=== PATIENT | male | born 1970 | race Caucasian/White ===

== ENCOUNTER 2017-05-18 13:10 | Emergency (ER) | payer MEDICAID, OTHER ==
[~2017-05-18] VITALS: Ht 182.9 cm; Wt 86.2 kg
[~2017-05-18 13:10] MED LIST: HYDR15SO4 PO
[2017-05-18 13:19] VITALS: BP 121/73
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
[2017-05-18] MEDS ORDERED: METHOCARBAMOL 500 MG TABLET PO STA (15:12)
[2017-05-18] MEDS ORDERED: traMADol 50 MG TABLET PO ONE (15:15)
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
[2017-05-18] MEDS ORDERED: METH-37 PO (16:09)
[2017-05-18] MEDS ORDERED: TRAM-48 PO (16:09)
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
== END 2017-05-18 16:13 | disposition home or self-care (01) ==
LOC: ER 13:10
DX: S13.4XXA Sprain of ligaments of cervical spine, initial encounter (principal); M47.9 Spondylosis, unspecified; M25.511 Pain in right shoulder; V49.40XA Driver injured in collision with unspecified motor vehicles in traffic accident, initial encounter; Y93.I9 Activity, other involving external motion; Y92.410 Unspecified street and highway as the place of occurrence of the external cause; Y99.8 Other external cause status
CPT/HCPCS: 72040; 73030; 99284

== ENCOUNTER 2018-12-30 14:55 | Inpatient (IN) | payer OTHER ==
[~2018-12-30] VITALS: Ht 182.9 cm; Wt 88.5 kg
[2018-12-30 13:40] VITALS: BP 132/74
[~2018-12-30 14:55] MED LIST changes: -HYDR15SO4 PO; +HYDR15SO6 PO; +METH-37 PO; +TRAM-48 PO
[2018-12-30] MEDS ORDERED: NAPROXEN 500 MG TABLET PO STA (15:16)
[2018-12-30] MEDS ORDERED: HYDROcodone/APAP 5/325MG 1 TAB TABLET PO ONE (15:30)
[2018-12-30] MEDS ORDERED: CYCLOBENZAPRINE 10 MG TABLET. PO ONE (15:30)
--- NOTE | 2018-12-30 15:44 | PHYS DOC ---
Past Medical History Past Medical History: No Pertinent History, Arthritis Past Surgical History: Other Additional Past Surgical Histo: liver ulcers removed, brain ulcers removed, spleenectomy Alcohol Use: None Drug Use: None Adult General Chief Complaint Chief Complaint: LOWER EXT PAIN HPI HPI Patient is a 48 year old female who presents to the ED today complaining of a sharp and constant 10 out of 10 left lateral hip pain radiating to the left lower extremity that began early this morning at 2 AM when he fell on ice at the mother's house. Patient denies any loss of consciousness, states the pain is worse on weight-bearing and ambulation. Patient states he has not taken anything for his pain. Review of Systems Review of Systems Constitutional: Denies fever or chills [] GI: Denies abdominal pain, nausea, vomiting, bloody stools or diarrhea [] : Denies dysuria or hematuria [] Musculoskeletal: Reports left hip pain radiating to the left lower extremity Integument: Denies rash or skin lesions [] Neurologic: Denies headache, focal weakness or sensory changes [] All other systems were reviewed and found to be within normal limits, except as documented in this note. Current Medications Current Medications Current Medications Medications (Trade) Dose Ordered Sig/Hakeem Start Time Stop Time Status Last Admin Dose Admin Acetaminophen/ Hydrocodone Bitart (Lortab 5/325) 2 tab 1X ONCE 12/30/18 15:30 12/30/18 15:31 Cancel Cyclobenzaprine HCl (Flexeril) 10 mg 1X ONCE 12/30/18 15:30 12/30/18 15:31 Cancel Morphine Sulfate (Morphine Sulfate) 5 mg 1X ONCE 12/30/18 16:15 12/30/18 16:16 DC 12/30/18 16:13 5 MG Naproxen (Naprosyn) 500 mg 1X STAT 12/30/18 15:16 12/30/18 15:17 Cancel Allergies Allergies Allergies Coded Allergies Type Severity Reaction Last Updated Verified No Known Drug Allergies 04/02/16 No Physical Exam Physical Exam Constitutional: Well developed, well nourished, no acute distress, non-toxic appearance. [] Abdomen: Bowel sounds normal, soft, no tenderness, no masses, no pulsatile masses. [] Skin: Warm, dry, no erythema, no rash. [] Back: No tenderness, no CVA tenderness. [] Extremities: Bilateral lower extremities with no obvious deformity. Tenderness on palpation of the left lateral proximal hip. Patient refused range of motion due to pain. +2 bilateral pedal pulses. Patient unable to bear weight to the left lower extremity. Neurologic: Alert and oriented X 3, normal motor function, normal sensory function, no focal deficits noted. [] Psychologic: Using foul language initially. Current Patient Data Vital Signs Vital Signs Date Time Temp Pulse Resp B/P (MAP) Pulse Ox O2 Delivery O2 Flow Rate FiO2 12/30/18 16:13 16 98 Room Air 12/30/18 15:00 98.1 97 119/61 (80) 98.1 Lab Values Laboratory Tests Test 12/30/18 16:00 White Blood Count 11.8 x10^3/uL (4.0-11.0) H Red Blood Count 5.43 x10^6/uL (4.30-5.70) Hemoglobin 14.8 g/dL (13.0-17.5) Hematocrit 45.4 % (39.0-53.0) Mean Corpuscular Volume 84 fL (79-100) Mean Corpuscular Hemoglobin 27 pg (25-35) Mean Corpuscular Hemoglobin Concent 33 g/dL (31-37) Red Cell Distribution Width 15.3 % (11.5-14.5) H Platelet Count 297 x10^3/uL (140-400) Neutrophils (%) (Auto) 64 % (31-73) Lymphocytes (%) (Auto) 20 % (24-48) L Monocytes (%) (Auto) 14 % (0-9) H Eosinophils (%) (Auto) 2 % (0-3) Basophils (%) (Auto) 1 % (0-3) Neutrophils # (Auto) 7.5 x10^3uL (1.8-7.7) Lymphocytes # (Auto) 2.4 x10^3/uL (1.0-4.8) Monocytes # (Auto) 1.6 x10^3/uL (0.0-1.1) H Eosinophils # (Auto) 0.2 x10^3/uL (0.0-0.7) Basophils # (Auto) 0.1 x10^3/uL (0.0-0.2) Prothrombin Time 13.8 SEC (11.7-14.0) Prothrombin Time INR 1.1 (0.8-1.1) PTT 29 SEC (24-38) Sodium Level 142 mmol/L (136-145) Potassium Level 3.9 mmol/L (3.5-5.1) Chloride Level 106 mmol/L (98-107) Carbon Dioxide Level 27 mmol/L (21-32) Anion Gap 9 (6-14) Blood Urea Nitrogen 13 mg/dL (8-26) Creatinine 1.0 mg/dL (0.7-1.3) Estimated GFR (Cockcroft-Gault) 80.4 Glucose Level 90 mg/dL (70-99) Calcium Level 8.7 mg/dL (8.5-10.1) Ethyl Alcohol Level < 10 mg/dL (0-10) Laboratory Tests 12/30/18 16:00 Laboratory Tests 12/30/18 16:00 EKG EKG [] Radiology/Procedures Radiology/Procedures []PROCEDURE: LUMBAR SPINE 2-3V EXAM: Lumbar spine, 3 views; left hip and pelvis, 3 views. HISTORY: Pain. Fall. COMPARISON: None. FINDINGS: Lumbar spine: Frontal, lateral and coned sacral views of the lumbar spine are obtained. There is minimal grade 1 anterolisthesis of L5 on S1. There is mild degenerative endplate remodeling predominantly at L4-L5. There is facet arthropathy at the mid lower lumbar levels. There is no fracture. Pelvis and left hip: A frontal view the pelvis and 2 views left hip are obtained. There is a mildly displaced left femoral neck fracture. IMPRESSION: 1. Nondisplaced left femoral neck fracture. 2. Mild multilevel degenerative change involving the lumbar spine. Electronically signed by: Aida Olivares MD (12/30/2018 3:55 PM) [place] [id number] DICTATED and SIGNED BY: AIDA OLIVARES MD DATE: 12/30/18 1558 Course & Med Decision Making Course & Med Decision Making Pertinent Labs and Imaging studies reviewed. (See chart for details) This is a 48-year-old male patient presenting to the ED today with left lateral hip pain radiating to the left lower extremity that began at 2 AM when he fell on ice. Left hip x-rays including pelvis-Nondisplaced left femoral neck fracture. 1630-spoke with Dr. Flores who will take patient to surgery today. Patient will stay NPO 1633-spoke with Dr. Aranda who accepted patient for admission. 1634 Dr. Flores in the Ed with patient. Barbra Disclaimer Dragon Disclaimer This electronic medical record was generated, in whole or in part, using a voice recognition dictation system. Departure Departure Impression: Primary Impression: Fall from standing Additional Impression: Fracture of femoral neck, left Disposition: 09 ADMITTED INPATIENT Condition: STABLE Referrals: NO PCP (PCP) Problem Qualifiers Primary Impression: Fall from standing Encounter type: initial encounter Qualified Codes: W19.XXXA - Unspecified fall, initial encounter Additional Impression: Fracture of femoral neck, left Encounter type: initial encounter Fracture type: closed Qualified Codes: S72.002A - Fracture of unspecified part of neck of left femur, initial encounter for closed fracture SAHARA HERMAN APRN Dec 30, 2018 15:44
--- NOTE | 2018-12-30 15:58 | RAD ---
EXAM: Lumbar spine, 3 views; left hip and pelvis, 3 views. HISTORY: Pain. Fall. COMPARISON: None. FINDINGS: Lumbar spine: Frontal, lateral and coned sacral views of the lumbar spine are obtained. There is minimal grade 1 anterolisthesis of L5 on S1. There is mild degenerative endplate remodeling predominantly at L4-L5. There is facet arthropathy at the mid lower lumbar levels. There is no fracture. Pelvis and left hip: A frontal view the pelvis and 2 views left hip are obtained. There is a mildly displaced left femoral neck fracture. IMPRESSION: 1. Nondisplaced left femoral neck fracture. 2. Mild multilevel degenerative change involving the lumbar spine. Electronically signed by: Aida Nguyen MD (12/30/2018 3:55 PM) [place] [id number]
[2018-12-30 16:14] LABS: BASO # 0.1 x10^3/uL (0.0-0.2); BASO % 1 % (0-3); EOS # 0.2 x10^3/uL (0.0-0.7); EOS % 2 % (0-3); HEMATOCRIT 45.4 % (39.0-53.0); HEMOGLOBIN 14.8 g/dL (13.0-17.5); LYMPH # 2.4 x10^3/uL (1.0-4.8); LYMPH % 20 % (24-48); MEAN CORPUSCULAR HEMOGLOBIN 27 pg (25-35); MEAN CORPUSCULAR HGB CONC 33 g/dL (31-37); MEAN CORPUSCULAR VOLUME 84 fL (79-100); MONO # 1.6 x10^3/uL (0.0-1.1); MONO % 14 % (0-9); NEUT # 7.5 x10^3uL (1.8-7.7); NEUT % 64 % (31-73); PLATELET COUNT 297 x10^3/uL (140-400); RED BLOOD COUNT 5.43 x10^6/uL (4.30-5.70); RED CELL DISTRIBUTION WIDTH 15.3 % (11.5-14.5); WHITE BLOOD COUNT 11.8 x10^3/uL (4.0-11.0)
[2018-12-30] MEDS ORDERED: MORPHINE SULFATE 10 MG/ML VIAL. IV ONE (16:15)
[2018-12-30 16:26] LABS: CALCIUM 8.7 mg/dL (8.5-10.1); GFR 80.4; POTASSIUM 3.9 mmol/L (3.5-5.1)
[2018-12-30 16:28] LABS: PROTHROMBIN TIME PATIENT 13.8 SEC (11.7-14.0)
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
[2018-12-30] MEDS ORDERED: HYDROmorphone 2 MG/ML VIAL IV PRN ×2 (17:30→19:45)
[2018-12-30 18:55] LABS: BILIRUBIN,URINE NEGATIVE (NEG); CLARITY,URINE CLEAR; COLOR,URINE YELLOW; NITRITE,URINE NEGATIVE (NEG); PROTEIN,URINE NEGATIVE (NEG-TRACE); UROBILINOGEN,URINE 0.2 mg/dL (0.2 mg/dL)
--- NOTE | 2018-12-30 18:55 | NUR ---
Received report from Nicholas RAMIREZ for patient. Patient arrived to unit at 1855 just after shift change via gurney. Patient complains of left hip pain and rates it a 8 out of 10. Patient talkative and pleasant. 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 During admission patient admitted to recreational drug use. Patient orientated to the unit and his room. His bed was placed in the lowest position and locked while also placing his call light within reach. Will continue to monitior patient. Current plan is for his surgical procedure to take place this evening.
[2018-12-30 19:01] LABS: BARBITURATES NEG (NEG); BENZODIAZEPINES NEG (NEG); CANNABINOIDS NEG (NEG); COCAINE NEG (NEG); METHADONE NEG (NEG); OPIATES POS (NEG); PHENCYCLIDINE NEG (NEG)
[2018-12-30 19:03] LABS: AMPHETAMINE/METHAMPHETAMINE POS (NEG)
[2018-12-30 19:14] LABS: HYALINE CASTS, URINE MANY /HPF
[2018-12-30 19:15] LABS: BACTERIA,URINE 0 /HPF (0-FEW); RBC,URINE OCC /HPF (0-2)
[2018-12-30] MEDS ORDERED: IV RINGERS,LACTATED 1000ML 1,000 ML IV SCH (19:41)
[2018-12-30] MEDS ORDERED: PROCHLORPERAZINE 10 MG/2 ML VIAL. IV PRN (19:45)
[2018-12-30] MEDS ORDERED: ONDANSETRON PF 4 MG/2 ML VIAL. IV PRN ×2 (19:45→22:30)
[2018-12-30] MEDS ORDERED: LIDOCAINE 1% PF 2 ML VIAL. ID PRN (19:45)
[2018-12-30] MEDS ORDERED: fentaNYL PF VIAL 100 MCG/2 ML VIAL IV PRN ×3 (19:45→22:30)
[2018-12-30] MEDS ORDERED: PROPOFOL 20 ML IV ONE (19:49)
[2018-12-30] MEDS ORDERED: ONDANSETRON PF 4 MG/2 ML VIAL. ONE (19:49)
[2018-12-30] MEDS ORDERED: LIDOCAINE 2% PF 5 ML VIAL. ONE (19:49)
[2018-12-30] MEDS ORDERED: DEXAMETHASONE SOD PHOS 20 MG/5 ML VIAL. ONE (19:49)
[2018-12-30] MEDS ORDERED: fentaNYL PF VIAL 100 MCG/2 ML VIAL ONE (19:50)
[2018-12-30] MEDS ORDERED: MIDAZOLAM HCL/PF 2 MG/2 ML VIAL. ONE (19:50)
[2018-12-30] MEDS ORDERED: MORPHINE SULFATE 4 MG/ML VIAL. IV PRN ×3 (20:00→22:30)
--- NOTE | 2018-12-30 20:25 | NUR ---
Patient is off unit for surgical procedure. Patient transferred to PACU via bed by this RN and Bernice RN from the PACU. No complications during transfer.
[2018-12-30] MEDS ORDERED: SEVOFLURANE 31 TO 60 MINUTES. IH ONE (22:08)
--- NOTE | 2018-12-30 22:28 | PDOC4 ---
Operative Note Operative Note Date of surgery: 12/30/2018 Preoperative diagnosis: Impacted left femoral neck fracture Postoperative diagnosis: Same Operative procedure: Closed reduction percutaneous screw placement 3 left femoral neck fracture her graft surgeon: Sandra Anesthesia: Gen. Estimated blood loss: 50 mL Complications: None Operative indications: Please see my emergency Department consultation note as of today for detail operative indications Operative text: Patient was identified procedure verified patient placed in the supine position on the [place] fracture table after adequate amounts of general anesthesia were administered. Left lower extremity was placed in traction all other bony prominences were well-padded and the right leg was placed in the right leg schwarz adequate reduction was verified under fluoroscopic guidance and the left hip was prepped and draped in standard sterile fashion. After timeout was performed patient procedure identified and verified and incision was made localized over the lateral aspect of the femur and a total of 3 guidewires were placed parallel in the femoral neck and placed in excellent position for good bite in the femoral head. The near cortex was drilled and [place] 8.0 cannulated titanium screws size 100, 100, and 95 mm in length were placed and achieved excellent reduction 8 minutes and bite. Placement was checked under multiple fluoroscopic guidance to ensure excellent placement of the femoral head and no penetration. Guidewires removed thorough irrigation carried out normal saline solution fascia was closed with #1 Vicryl suture subcutaneous closure with buried Vicryl suture skin closure with xenia sterile dressings were applied patient was returned to recovery room in stable condition having tolerated procedure well KEELEY ROWLEY MD Dec 30, 2018 22:28
[2018-12-30] MEDS ORDERED: oxyCODONE IR 5 MG TABLET PO PRN (22:30)
[2018-12-30] MEDS ORDERED: POLYETHYLENE GLYCOL 3350 17 GM PACKET. PO PRN (22:30)
[2018-12-30] MEDS ORDERED: DEXTROSE 50% 25 GM / 50ML DISP.SYRIN. IV PRN (22:30)
[2018-12-30] MEDS ORDERED: HYDROcodone/APAP 7.5/325MG 1 TAB TABLET PO PRN (22:30)
--- NOTE | 2018-12-30 23:35 | NUR ---
Patient arrived back to unit via bed at 2335, after receiving report from Bernice RAMIREZ in the PACU. Patient reorientated to room, bed placed in lowest position and locked, and call light within reach. Patient currently rates pain at a 3 out of 10. Will continue to monitor the patient.
[2018-12-30] MEDS: HYDROcodone/APAP 7.5/325MG 1 TAB TABLET PO PRN (23:44)
[2018-12-30 23:45] VITALS: BP 132/74
[2018-12-31] VITALS (9 sets, daily range): BP systolic 101–127; BP diastolic 56–78
[2018-12-31 04:25] LABS: BASO % 0 % (0-3); EOS % 0 % (0-3); HEMATOCRIT 46.7 % (39.0-53.0); HEMOGLOBIN 15.1 g/dL (13.0-17.5); LYMPH # 0.8 x10^3/uL (1.0-4.8); LYMPH % 6 % (24-48); MEAN CORPUSCULAR HEMOGLOBIN 27 pg (25-35); MEAN CORPUSCULAR HGB CONC 32 g/dL (31-37); MEAN CORPUSCULAR VOLUME 84 fL (79-100); MONO # 0.2 x10^3/uL (0.0-1.1); MONO % 2 % (0-9); NEUT # 11.7 x10^3uL (1.8-7.7); NEUT % 92 % (31-73); PLATELET COUNT 303 x10^3/uL (140-400); RED BLOOD COUNT 5.57 x10^6/uL (4.30-5.70); RED CELL DISTRIBUTION WIDTH 15.4 % (11.5-14.5); WHITE BLOOD COUNT 12.8 x10^3/uL (4.0-11.0)
[2018-12-31 05:35] LABS: CALCIUM 8.6 mg/dL (8.5-10.1); CREATININE 1.1 mg/dL (0.7-1.3); GFR 72.1; POTASSIUM 4.4 mmol/L (3.5-5.1)
[2018-12-31] MEDS ORDERED: MAGNESIUM HYDROXIDE 2,400 MG/30 ML ORAL.SUSP. PO PRN (06:00)
[2018-12-31 07:35] LABS: % BANDS 2 % (0-9); % LYMPHS 5 % (24-48); % MONOS 1 % (0-10); % SEGS 92 % (35-66); PLT ESTIMATE ADEQUATE (ADEQUATE)
[2018-12-31] MEDS: ASPIRIN 325 MG TABLET PO SCH (08:26)
[2018-12-31] MEDS: SENNOSIDES/DOCUSATE 8.6/50MG TABLET. PO SCH (08:26)
[2018-12-31] MEDS: HYDROcodone/APAP 7.5/325MG 1 TAB TABLET PO PRN ×4 (08:27→20:35)
--- NOTE | 2018-12-31 10:39 | PDOC ---
PROGRESS NOTES Chief Complaint Chief Complaint 1. Nondisplaced left femoral neck fracture. OR 12/30/18 2. HX REMOTE CLOSED HEAD INJURY WITH cognitive decline 3. tobacco abuse 4. Hx osteoporosis 5. HIgh Likelihood vitamin D deficiency History of Present Illness History of Present Illness Postop day #1 Very talkative but rather pleasant VS in chart looks good He looks okay Has not amblated yet post op PLAN: Add PTOT Check vitamin D levels Pain control Regular diet Will need dexa scan care of PCP yearly No home meds to reconcile Vitals Vitals Vital Signs Date Time Temp Pulse Resp B/P (MAP) Pulse Ox O2 Delivery O2 Flow Rate FiO2 12/31/18 08:27 90 Room Air 12/31/18 07:00 97.8 84 18 116/71 (86) 97.8 12/31/18 00:44 10.0 Physical Exam General: Alert, Oriented X3, Cooperative, mild distress Abdomen: Normal bowel sounds, Soft Extremities: No clubbing, No cyanosis, No edema, Normal pulses Labs LABS Laboratory Tests Test 12/30/18 16:00 12/30/18 17:56 12/31/18 03:30 White Blood Count 11.8 x10^3/uL (4.0-11.0) 12.8 x10^3/uL (4.0-11.0) Red Blood Count 5.43 x10^6/uL (4.30-5.70) 5.57 x10^6/uL (4.30-5.70) Hemoglobin 14.8 g/dL (13.0-17.5) 15.1 g/dL (13.0-17.5) Hematocrit 45.4 % (39.0-53.0) 46.7 % (39.0-53.0) Mean Corpuscular Volume 84 fL (79-100) 84 fL (79-100) Mean Corpuscular Hemoglobin 27 pg (25-35) 27 pg (25-35) Mean Corpuscular Hemoglobin Concent 33 g/dL (31-37) 32 g/dL (31-37) Red Cell Distribution Width 15.3 % (11.5-14.5) 15.4 % (11.5-14.5) Platelet Count 297 x10^3/uL (140-400) 303 x10^3/uL (140-400) Neutrophils (%) (Auto) 64 % (31-73) 92 % (31-73) Lymphocytes (%) (Auto) 20 % (24-48) 6 % (24-48) Monocytes (%) (Auto) 14 % (0-9) 2 % (0-9) Eosinophils (%) (Auto) 2 % (0-3) 0 % (0-3) Basophils (%) (Auto) 1 % (0-3) 0 % (0-3) Neutrophils # (Auto) 7.5 x10^3uL (1.8-7.7) 11.7 x10^3uL (1.8-7.7) Lymphocytes # (Auto) 2.4 x10^3/uL (1.0-4.8) 0.8 x10^3/uL (1.0-4.8) Monocytes # (Auto) 1.6 x10^3/uL (0.0-1.1) 0.2 x10^3/uL (0.0-1.1) Eosinophils # (Auto) 0.2 x10^3/uL (0.0-0.7) 0.0 x10^3/uL (0.0-0.7) Basophils # (Auto) 0.1 x10^3/uL (0.0-0.2) 0.0 x10^3/uL (0.0-0.2) Prothrombin Time 13.8 SEC (11.7-14.0) Prothromb Time International Ratio 1.1 (0.8-1.1) Activated Partial Thromboplast Time 29 SEC (24-38) Sodium Level 142 mmol/L (136-145) 140 mmol/L (136-145) Potassium Level 3.9 mmol/L (3.5-5.1) 4.4 mmol/L (3.5-5.1) Chloride Level 106 mmol/L (98-107) 104 mmol/L (98-107) Carbon Dioxide Level 27 mmol/L (21-32) 27 mmol/L (21-32) Anion Gap 9 (6-14) 9 (6-14) Blood Urea Nitrogen 13 mg/dL (8-26) 12 mg/dL (8-26) Creatinine 1.0 mg/dL (0.7-1.3) 1.1 mg/dL (0.7-1.3) Estimated GFR (Cockcroft-Gault) 80.4 72.1 Glucose Level 90 mg/dL (70-99) 160 mg/dL (70-99) Calcium Level 8.7 mg/dL (8.5-10.1) 8.6 mg/dL (8.5-10.1) Ethyl Alcohol Level < 10 mg/dL (0-10) Urine Collection Type Unknown Urine Color Yellow Urine Clarity Clear Urine pH 6.0 Urine Specific Erin 1.020 Urine Protein Negative mg/dL (NEG-TRACE) Urine Glucose (UA) Negative mg/dL (NEG) Urine Ketones (Stick) 15 mg/dL (NEG) Urine Blood Negative (NEG) Urine Nitrite Negative (NEG) Urine Bilirubin Negative (NEG) Urine Urobilinogen Dipstick 0.2 mg/dL (0.2 mg/dL) Urine Leukocyte Esterase Negative (NEG) Urine RBC Occ /HPF (0-2) Urine WBC 1-4 /HPF (0-4) Urine Bacteria 0 /HPF (0-FEW) Urine Hyaline Casts Many /HPF Urine Mucus Mod /LPF Urine Opiates Screen Pos (NEG) Urine Methadone Screen Neg (NEG) Urine Barbiturates Neg (NEG) Urine Phencyclidine Screen Neg (NEG) Urine Amphetamine/Methamphetamine Pos (NEG) Urine Benzodiazepines Screen Neg (NEG) Urine Cocaine Screen Neg (NEG) Urine Cannabinoids Screen Neg (NEG) Urine Ethyl Alcohol Neg (NEG) Segmented Neutrophils % 92 % (35-66) Band Neutrophils % 2 % (0-9) Lymphocytes % 5 % (24-48) Monocytes % 1 % (0-10) Platelet Estimate Adequate (ADEQUATE) 25-Hydroxy Vitamin D Total 18.2 ng/mL (30-100) Assessment and Plan Assessmemt and Plan Problems Medical Problems: (1) Fall from standing Status: Acute (2) Fracture of femoral neck, left Status: Acute Comment Review of Relevant I have reviewed the following items dillan (where applicable) has been applied. Labs Laboratory Tests Test 12/30/18 16:00 12/30/18 17:56 12/31/18 03:30 White Blood Count 11.8 x10^3/uL (4.0-11.0) 12.8 x10^3/uL (4.0-11.0) Red Blood Count 5.43 x10^6/uL (4.30-5.70) 5.57 x10^6/uL (4.30-5.70) Hemoglobin 14.8 g/dL (13.0-17.5) 15.1 g/dL (13.0-17.5) Hematocrit 45.4 % (39.0-53.0) 46.7 % (39.0-53.0) Mean Corpuscular Volume 84 fL (79-100) 84 fL (79-100) Mean Corpuscular Hemoglobin 27 pg (25-35) 27 pg (25-35) Mean Corpuscular Hemoglobin Concent 33 g/dL (31-37) 32 g/dL (31-37) Red Cell Distribution Width 15.3 % (11.5-14.5) 15.4 % (11.5-14.5) Platelet Count 297 x10^3/uL (140-400) 303 x10^3/uL (140-400) Neutrophils (%) (Auto) 64 % (31-73) 92 % (31-73) Lymphocytes (%) (Auto) 20 % (24-48) 6 % (24-48) Monocytes (%) (Auto) 14 % (0-9) 2 % (0-9) Eosinophils (%) (Auto) 2 % (0-3) 0 % (0-3) Basophils (%) (Auto) 1 % (0-3) 0 % (0-3) Neutrophils # (Auto) 7.5 x10^3uL (1.8-7.7) 11.7 x10^3uL (1.8-7.7) Lymphocytes # (Auto) 2.4 x10^3/uL (1.0-4.8) 0.8 x10^3/uL (1.0-4.8) Monocytes # (Auto) 1.6 x10^3/uL (0.0-1.1) 0.2 x10^3/uL (0.0-1.1) Eosinophils # (Auto) 0.2 x10^3/uL (0.0-0.7) 0.0 x10^3/uL (0.0-0.7) Basophils # (Auto) 0.1 x10^3/uL (0.0-0.2) 0.0 x10^3/uL (0.0-0.2) Prothrombin Time 13.8 SEC (11.7-14.0) Prothromb Time International Ratio 1.1 (0.8-1.1) Activated Partial Thromboplast Time 29 SEC (24-38) Sodium Level 142 mmol/L (136-145) 140 mmol/L (136-145) Potassium Level 3.9 mmol/L (3.5-5.1) 4.4 mmol/L (3.5-5.1) Chloride Level 106 mmol/L (98-107) 104 mmol/L (98-107) Carbon Dioxide Level 27 mmol/L (21-32) 27 mmol/L (21-32) Anion Gap 9 (6-14) 9 (6-14) Blood Urea Nitrogen 13 mg/dL (8-26) 12 mg/dL (8-26) Creatinine 1.0 mg/dL (0.7-1.3) 1.1 mg/dL (0.7-1.3) Estimated GFR (Cockcroft-Gault) 80.4 72.1 Glucose Level 90 mg/dL (70-99) 160 mg/dL (70-99) Calcium Level 8.7 mg/dL (8.5-10.1) 8.6 mg/dL (8.5-10.1) Ethyl Alcohol Level < 10 mg/dL (0-10) Urine Collection Type Unknown Urine Color Yellow Urine Clarity Clear Urine pH 6.0 Urine Specific Erin 1.020 Urine Protein Negative mg/dL (NEG-TRACE) Urine Glucose (UA) Negative mg/dL (NEG) Urine Ketones (Stick) 15 mg/dL (NEG) Urine Blood Negative (NEG) Urine Nitrite Negative (NEG) Urine Bilirubin Negative (NEG) Urine Urobilinogen Dipstick 0.2 mg/dL (0.2 mg/dL) Urine Leukocyte Esterase Negative (NEG) Urine RBC Occ /HPF (0-2) Urine WBC 1-4 /HPF (0-4) Urine Bacteria 0 /HPF (0-FEW) Urine Hyaline Casts Many /HPF Urine Mucus Mod /LPF Urine Opiates Screen Pos (NEG) Urine Methadone Screen Neg (NEG) Urine Barbiturates Neg (NEG) Urine Phencyclidine Screen Neg (NEG) Urine Amphetamine/Methamphetamine Pos (NEG) Urine Benzodiazepines Screen Neg (NEG) Urine Cocaine Screen Neg (NEG) Urine Cannabinoids Screen Neg (NEG) Urine Ethyl Alcohol Neg (NEG) Segmented Neutrophils % 92 % (35-66) Band Neutrophils % 2 % (0-9) Lymphocytes % 5 % (24-48) Monocytes % 1 % (0-10) Platelet Estimate Adequate (ADEQUATE) 25-Hydroxy Vitamin D Total 18.2 ng/mL (30-100) Laboratory Tests Test 12/30/18 16:00 12/30/18 17:56 12/31/18 03:30 White Blood Count 11.8 x10^3/uL (4.0-11.0) 12.8 x10^3/uL (4.0-11.0) Red Blood Count 5.43 x10^6/uL (4.30-5.70) 5.57 x10^6/uL (4.30-5.70) Hemoglobin 14.8 g/dL (13.0-17.5) 15.1 g/dL (13.0-17.5) Hematocrit 45.4 % (39.0-53.0) 46.7 % (39.0-53.0) Mean Corpuscular Volume 84 fL (79-100) 84 fL (79-100) Mean Corpuscular Hemoglobin 27 pg (25-35) 27 pg (25-35) Mean Corpuscular Hemoglobin Concent 33 g/dL (31-37) 32 g/dL (31-37) Red Cell Distribution Width 15.3 % (11.5-14.5) 15.4 % (11.5-14.5) Platelet Count 297 x10^3/uL (140-400) 303 x10^3/uL (140-400) Neutrophils (%) (Auto) 64 % (31-73) 92 % (31-73) Lymphocytes (%) (Auto) 20 % (24-48) 6 % (24-48) Monocytes (%) (Auto) 14 % (0-9) 2 % (0-9) Eosinophils (%) (Auto) 2 % (0-3) 0 % (0-3) Basophils (%) (Auto) 1 % (0-3) 0 % (0-3) Neutrophils # (Auto) 7.5 x10^3uL (1.8-7.7) 11.7 x10^3uL (1.8-7.7) Lymphocytes # (Auto) 2.4 x10^3/uL (1.0-4.8) 0.8 x10^3/uL (1.0-4.8) Monocytes # (Auto) 1.6 x10^3/uL (0.0-1.1) 0.2 x10^3/uL (0.0-1.1) Eosinophils # (Auto) 0.2 x10^3/uL (0.0-0.7) 0.0 x10^3/uL (0.0-0.7) Basophils # (Auto) 0.1 x10^3/uL (0.0-0.2) 0.0 x10^3/uL (0.0-0.2) Prothrombin Time 13.8 SEC (11.7-14.0) Prothromb Time International Ratio 1.1 (0.8-1.1) Activated Partial Thromboplast Time 29 SEC (24-38) Sodium Level 142 mmol/L (136-145) 140 mmol/L (136-145) Potassium Level 3.9 mmol/L (3.5-5.1) 4.4 mmol/L (3.5-5.1) Chloride Level 106 mmol/L (98-107) 104 mmol/L (98-107) Carbon Dioxide Level 27 mmol/L (21-32) 27 mmol/L (21-32) Anion Gap 9 (6-14) 9 (6-14) Blood Urea Nitrogen 13 mg/dL (8-26) 12 mg/dL (8-26) Creatinine 1.0 mg/dL (0.7-1.3) 1.1 mg/dL (0.7-1.3) Estimated GFR (Cockcroft-Gault) 80.4 72.1 Glucose Level 90 mg/dL (70-99) 160 mg/dL (70-99) Calcium Level 8.7 mg/dL (8.5-10.1) 8.6 mg/dL (8.5-10.1) Ethyl Alcohol Level < 10 mg/dL (0-10) Urine Collection Type Unknown Urine Color Yellow Urine Clarity Clear Urine pH 6.0 Urine Specific Erin 1.020 Urine Protein Negative mg/dL (NEG-TRACE) Urine Glucose (UA) Negative mg/dL (NEG) Urine Ketones (Stick) 15 mg/dL (NEG) Urine Blood Negative (NEG) Urine Nitrite Negative (NEG) Urine Bilirubin Negative (NEG) Urine Urobilinogen Dipstick 0.2 mg/dL (0.2 mg/dL) Urine Leukocyte Esterase Negative (NEG) Urine RBC Occ /HPF (0-2) Urine WBC 1-4 /HPF (0-4) Urine Bacteria 0 /HPF (0-FEW) Urine Hyaline Casts Many /HPF Urine Mucus Mod /LPF Urine Opiates Screen Pos (NEG) Urine Methadone Screen Neg (NEG) Urine Barbiturates Neg (NEG) Urine Phencyclidine Screen Neg (NEG) Urine Amphetamine/Methamphetamine Pos (NEG) Urine Benzodiazepines Screen Neg (NEG) Urine Cocaine Screen Neg (NEG) Urine Cannabinoids Screen Neg (NEG) Urine Ethyl Alcohol Neg (NEG) Segmented Neutrophils % 92 % (35-66) Band Neutrophils % 2 % (0-9) Lymphocytes % 5 % (24-48) Monocytes % 1 % (0-10) Platelet Estimate Adequate (ADEQUATE) 25-Hydroxy Vitamin D Total 18.2 ng/mL (30-100) Medications Current Medications Acetaminophen/ Hydrocodone Bitart (Lortab 5/325) 2 tab 1X ONCE PO ; Start 12/30 at 15:30; Stop 12/30/18 at 15:31; Status Cancel Naproxen (Naprosyn) 500 mg 1X STAT PO ; Start 12/30/18 at 15:16; Stop 12/30/18 at 15:17; Status Cancel Cyclobenzaprine HCl (Flexeril) 10 mg 1X ONCE PO ; Start 12/30/18 at 15:30; Stop 12/30/18 at 15:31; Status Cancel Morphine Sulfate (Morphine Sulfate) 5 mg 1X ONCE IV Last administered on at 16:13; Start 12/30/18 at 16:15; Stop 12/30/18 at 16:16; Status DC Hydromorphone HCl (Dilaudid) 1 mg PRN Q4HRS PRN IV MODERATE PAIN Last administered on 12/30/18at 18:04; Start 12/30/18 at 17:30 Ondansetron HCl (Zofran) 4 mg PRN Q6HRS PRN IV NAUSEA/VOMITING; Start 12/30/18 at 19:45; Stop 12/30/18 at 22:36; Status DC Fentanyl Citrate (Fentanyl 2ml Vial) 25 mcg PRN Q5MIN PRN IV MILD PAIN; Start 12/30/18 at 19:45; Stop 12/31/18 at 19:44 Fentanyl Citrate (Fentanyl 2ml Vial) 50 mcg PRN Q5MIN PRN IV MODERATE TO SEVERE PAIN; Start 12/30/18 at 19:45; Stop 12/31/18 at 19:44 Morphine Sulfate (Morphine Sulfate) 1 mg PRN Q10MIN PRN IV PAIN; Start at 20:00 Ringer's Solution 1,000 ml @ 30 mls/hr Q24H IV Last administered on 12/30/18at 21:02; Start 12/30/18 at 19:41; Stop 12/31/18 at 07:40; Status DC Lidocaine HCl (Xylocaine-Mpf 1% 2ml Vial) 2 ml PRN 1X PRN ID PRIOR TO IV START ; Start 12/30/18 at 19:45; Stop 12/31/18 at 19:44 Hydromorphone HCl (Dilaudid) 0.5 mg PRN Q10MIN PRN IV SEV PAIN, Second choice; Start 12/30/18 at 19:45; Stop 12/31/18 at 19:44 Prochlorperazine Edisylate (Compazine) 5 mg PACU PRN PRN IV NAUSEA, MRX1; Start 12/30/18 at 19:45; Stop 12/31/18 at 19:44 Propofol 20 ml @ As Directed STK-MED ONCE IV ; Start 12/30/18 at 19:49; Stop at 19:50; Status DC Dexamethasone Sodium Phosphate (Decadron) 20 mg STK-MED ONCE .ROUTE ; Start at 19:49; Stop 12/30/18 at 19:50; Status DC Lidocaine HCl (Lidocaine Pf 2% Vial) 5 ml STK-MED ONCE .ROUTE ; Start 12/30/18 at 19:49; Stop 12/30/18 at 19:50; Status DC Ondansetron HCl (Zofran) 4 mg STK-MED ONCE .ROUTE ; Start 12/30/18 at 19:49; Stop 12/30/18 at 19:50; Status DC Fentanyl Citrate (Fentanyl 2ml Vial) 100 mcg STK-MED ONCE .ROUTE ; Start at 19:50; Stop 12/30/18 at 19:51; Status DC Midazolam HCl (Versed) 2 mg STK-MED ONCE .ROUTE ; Start 12/30/18 at 19:50; Stop 12/30/18 at 19:51; Status DC Cefazolin Sodium 50 ml @ As Directed STK-MED ONCE IV ; Start 12/30/18 at 21:05; Stop 12/30/18 at 21:06; Status DC Sevoflurane (Ultane) 30 ml STK-MED ONCE IH ; Start 12/30/18 at 22:08; Stop 12/30 at 22:09; Status DC Oxycodone HCl (Roxicodone) 5 mg PRN Q3HRS PRN PO PAIN; Start 12/30/18 at 22:30 Morphine Sulfate (Morphine Sulfate) 2 mg PRN Q1HR PRN IV PAIN; Start 12/30/18 at 22:30 Fentanyl Citrate (Fentanyl 2ml Vial) 25 mcg PRN Q1HR PRN IV PAIN; Start at 22:30 Senna/Docusate Sodium (Senna Plus) 1 tab DAILY PO Last administered on at 08:26; Start 12/31/18 at 09:00 Polyethylene Glycol (miraLAX PACKET) 17 gm PRN DAILY PRN PO CONSTIPATION; Start 12/30/18 at 22:30 Ondansetron HCl (Zofran) 4 mg PRN Q4HRS PRN IV NAUSEA/VOMITING; Start 12/30/18 at 22:30 Aspirin (Evie Aspirin) 325 mg DAILYWBKFT PO Last administered on 12/31/18at 08: 26; Start 12/31/18 at 08:00 Magnesium Hydroxide (Milk Of Magnesia) 2,400 mg 1X PRN PRN PO CONSTIPATION; Start 12/31/18 at 06:00; Stop 01/01/19 at 05:59 Bisacodyl (Dulcolax Supp) 10 mg 1X PRN PRN MS CONSTIPATION; Start 12/31/18 at 16:00; Stop 01/01/19 at 15:59 Acetaminophen/ Hydrocodone Bitart (Lortab 7.5/325) 1 tab PRN Q4HRS PRN PO PAIN ; Start 12/30/18 at 22:30 Morphine Sulfate (Morphine Sulfate) 4 mg PRN Q2HR PRN IV PAIN; Start 12/30/18 at 22:30 Acetaminophen/ Hydrocodone Bitart (Lortab 7.5/325) 2 tab PRN Q4HRS PRN PO PAIN Last administered on 12/31/18at 08:27; Start 12/30/18 at 22:30 Dextrose (Dextrose 50%-Water Syringe) 12.5 gm PRN Q15MIN PRN IV SEE COMMENTS; Start 12/30/18 at 22:30 Cefazolin Sodium/ Dextrose 50 ml @ 100 mls/hr Q6H IV Last administered on 12/31at 05:41; Start 12/30/18 at 23:00; Stop 12/31/18 at 11:29 Cefazolin Sodium 50 ml @ 100 mls/hr 1X ONCE IV Last administered on at 21:14; Start 12/31/18 at 00:00; Stop 12/31/18 at 00:16; Status DC Active Scripts Active Ultram (Tramadol Hcl) 50 Mg Tablet 1 Tab PO Q6HRS Robaxin (Methocarbamol) 500 Mg Tablet 1 Tab PO TID Hydrocodone-Apap 7.5-325/15 Soln (Hydrocodone Bit/Acetaminophen) 15 Ml Solution 15 Ml PO PRN Q6HRS PRN Vitals/I & O Vital Sign - Last 24 Hours 12/30/18 12/30/18 12/30/18 12/30/18 13:40 15:00 16:00 16:13 Temp 98.1 98.1 98.1 98.1 Pulse 92 97 90 Resp 22 14 14 16 B/P (MAP) 132/74 (93) 119/61 (80) 125/66 (85) Pulse Ox 92 98 97 98 O2 Delivery Room Air Room Air Room Air Room Air 12/30/18 12/30/18 12/30/18 12/30/18 16:30 17:30 18:00 18:04 Pulse 98 94 92 Resp 16 16 16 B/P (MAP) 105/65 (78) 110/68 (82) 118/69 (85) Pulse Ox 98 94 97 96 O2 Delivery Room Air Room Air Room Air Room Air 12/30/18 12/30/18 12/30/1819 20:27 21:48 22:22 22:22 Temp 97.2 97.2 97.2 97.2 Pulse 92 58 Resp 20 16 B/P (MAP) 119/65 124/71 Pulse Ox 96 100 O2 Delivery Room Air Room Air Room Air Room Air O2 Flow Rate 10 10 12/30/18 12/30/18 12/30/18 12/30/18 22:37 22:52 23:07 23:24 Temp 97.2 97 97.2 97 97.2 97.0 97.2 97.0 Pulse 65 64 76 70 Resp 17 18 18 20 B/P (MAP) 119/72 120/69 115/64 118/62 Pulse Ox 100 100 95 94 O2 Delivery Room Air Simple Mask Room Air Room Air O2 Flow Rate 10 10 12/30/18 12/30/18 12/31/18 12/31/18 23:44 23:45 00:00 00:27 Temp 97.8 98.2 98.0 97.8 98.2 98.0 Pulse 92 97 99 Resp 22 20 20 B/P (MAP) 132/74 (93) 124/78 (93) 112/72 (85) Pulse Ox 94 92 92 92 O2 Delivery Room Air Room Air Room Air Room Air 12/31/18 12/31/18 12/31/18 12/31/18 00:44 01:00 02:00 07:00 Temp 98.0 98.3 97.8 98.0 98.3 97.8 Pulse 61 64 84 Resp 18 18 18 B/P (MAP) 109/67 (81) 101/64 (76) 116/71 (86) Pulse Ox 92 98 90 100 O2 Delivery Room Air Room Air Room Air Room Air O2 Flow Rate 10.0 12/31/18 08:27 Pulse Ox 90 O2 Delivery Room Air Intake and Output 12/30/18 12/30/18 12/31/18 15:00 23:00 07:00 Intake Total 1110 ml Output Total 50 ml Balance -50 ml 1110 ml DAYO NAVARRO MD Dec 31, 2018 10:39
--- NOTE | 2018-12-31 14:18 | NUR ---
SW following. Discussed with RN. Pt has history of drug use, PAT team consulted. PAT team met with pt and advised SW pt reports having a severe brain injury, is not interested in any rehab, but would like to follow up for mental health services. RAMILA provided pt with information for [facility]. Pt has his car here and can stay at his mother's home when discharged from the hospital. SW will continue to follow. RN notified.
[2018-12-31] MEDS ORDERED: CALCIUM CARBONATE 500 MG TAB.CHEW PO PRN (15:45)
[2018-12-31] MEDS ORDERED: BISACODYL 10 MG SUPP.RECT. PR PRN (16:00)
--- NOTE | 2018-12-31 16:03 | CONS ---
DATE OF CONSULTATION: 12/30/2018 REQUESTING CONSULTATION: Dr. Francisco Perez and Tarsha Clemons, nurse practitioner. REASON FOR CONSULTATION: Left hip fracture. HISTORY OF PRESENT ILLNESS: The patient is a 48-year-old male who fell this morning at 2 a.m. when he slipped on ice at his mother's house. He did not hit his head. No loss of consciousness. He had landed on his left hip and had, since that time, difficulty bearing weight and severe hip pain. On presentation to the Emergency Department, 08/13, better with pain medications and avoiding weightbearing in the interim. He has not taken any medicines for his pain. PAST MEDICAL HISTORY: Significant for rheumatoid arthritis and previous remote head injury. PAST SURGICAL HISTORY: Include a brain surgery associated with a head injury, a splenectomy, and he has also medical history of some ulcer surgery. MEDICATIONS: Denies any current medications. ALLERGIES: No known drug allergies. REVIEW OF SYSTEMS: Only for the hip pain. He denies any head injury, chest pain, shortness of breath, radiating pain, numbness, tingling in the extremities, focal weakness. No recent fever, chills or constitutional symptoms. FAMILY HISTORY: Noncontributory. SOCIAL HISTORY: Denies any smoking or alcohol use. 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 He is actually a less than 1 pack per day smoker. FAMILY HISTORY: Hypercholesterolemia and hypertension. PHYSICAL EXAMINATION: GENERAL: A pleasant, cooperative 48-year-old male, alert and oriented, no acute distress. HEENT: Atraumatic, normocephalic. EXTREMITIES: On examination of the upper extremities, he has full range of motion; normal stability, alignment of bilateral shoulders, elbows, wrists. On examination of lower extremities, the left hip is very tender on palpation or any type of motion, no deformity is present. Normal examination of the contralateral right hip, bilateral knees and ankles with intact motor function, distal pulses, sensation, reflexes and skin in both upper and lower extremities throughout. IMAGING: X-rays show a nondisplaced femoral neck fracture on the left side with some partial impaction. IMPRESSION: Left femoral neck fracture. TREATMENT PLAN: I went over with him the significance of the injury, the possibility of disruption of the blood supply due to the location in the femoral neck and the rationale for fixation to avoid any displacement. I told him that with ambulating, unfortunately the fracture could displace and disrupt the blood supply. Another alternative would be to significantly limit his weightbearing over the next several weeks or fixation of the fracture to allow him to weightbear. He prefers to undergo the surgical evaluation. We did cover the fact that it may not heal and there is a possibility of blood supply disruption regardless due to his injury, possibility of infection with surgery, medical or other anesthetic complications. All his questions were answered. He wishes to proceed with surgical evaluation and treatment, which will occur today as he is n.p.o. since breakfast. KEELEY ROWLEY MD DR: CATY/tabatha JOB#: [id number] / [id number]
[2019-01-01 03:00] VITALS: BP 108/62
[2019-01-01 04:31] LABS: BASO # 0.1 x10^3/uL (0.0-0.2); BASO % 1 % (0-3); EOS # 0.2 x10^3/uL (0.0-0.7); EOS % 1 % (0-3); HEMATOCRIT 43.7 % (39.0-53.0); HEMOGLOBIN 14.1 g/dL (13.0-17.5); LYMPH # 3.4 x10^3/uL (1.0-4.8); LYMPH % 21 % (24-48); MEAN CORPUSCULAR HEMOGLOBIN 27 pg (25-35); MEAN CORPUSCULAR HGB CONC 32 g/dL (31-37); MEAN CORPUSCULAR VOLUME 84 fL (79-100); MONO # 1.9 x10^3/uL (0.0-1.1); MONO % 12 % (0-9); NEUT # 10.7 x10^3uL (1.8-7.7); NEUT % 66 % (31-73); PLATELET COUNT 293 x10^3/uL (140-400); RED BLOOD COUNT 5.23 x10^6/uL (4.30-5.70); RED CELL DISTRIBUTION WIDTH 15.5 % (11.5-14.5); WHITE BLOOD COUNT 16.3 x10^3/uL (4.0-11.0)
[2019-01-01 05:14] LABS: CALCIUM 8.6 mg/dL (8.5-10.1); CREATININE 1.1 mg/dL (0.7-1.3); GFR 72.1; POTASSIUM 4.1 mmol/L (3.5-5.1)
[2019-01-01 06:55] VITALS: BP 113/75
[2019-01-01] MEDS ORDERED: ERGO500027 PO (08:45)
[2019-01-01] MEDS ORDERED: HYDR-2765 PO (08:45)
[2019-01-01] MEDS ORDERED: ASPI325T8 PO (08:45)
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
[2019-01-01] MEDS: ASPIRIN 325 MG TABLET PO SCH (08:52)
[2019-01-01] MEDS: SENNOSIDES/DOCUSATE 8.6/50MG TABLET. PO SCH (08:52)
[2019-01-01] MEDS: HYDROcodone/APAP 7.5/325MG 1 TAB TABLET PO PRN ×2 (08:53→14:48)
--- NOTE | 2019-01-01 09:16 | NUR ---
Pt is declining physical therapy outpatient and home health.
--- NOTE | 2019-01-01 09:17 | NUR ---
SW following. Discussed with RN. RN discussed with pt HH vs outpatient. Per RN, pt declined both home health and outpatient therapy, as he does not believe he needs this. Pt reported he is staying with his mother in an "old folks home". No SW needs at this time. RN anticipates DC today.
[2019-01-01] MEDS ORDERED: ERGOCALCIFEROL (VITAMIN D2) 50,000 UNIT CAPSULE. PO SCH (09:30)
[2019-01-01 10:29] VITALS: BP 118/69
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
--- NOTE | 2019-01-01 17:07 | NUR ---
Pt declined HH and outpt pt. Pt was given rx for pain, aspirin, vit. D. Pt is to f/u in two weeks with ortho. VSS. Dc packet given, no questions asked, and pt was escorted to main entrance by NA at 1405. Walker was also given to pt.
== END 2019-01-01 14:05 | disposition home or self-care (01) | DRG 482 ==
LOC: ER 14:55 → 4 NORTH 16:35
PROVIDERS: ADMIT Family Medicine; ATTEND Family Medicine
PROC: 0QS734Z Reposition Left Upper Femur with Internal Fixation Device, Percutaneous Approach (ICD-10-PCS; principal; 2018-12-30 20:30)
DX: S72.002A Fracture of unspecified part of neck of left femur, initial encounter for closed fracture (principal); W18.30XA Fall on same level, unspecified, initial encounter; F17.210 Nicotine dependence, cigarettes, uncomplicated; M06.9 Rheumatoid arthritis, unspecified; M46.90 Unspecified inflammatory spondylopathy, site unspecified; M81.0 Age-related osteoporosis without current pathological fracture; F41.9 Anxiety disorder, unspecified; E55.9 Vitamin D deficiency, unspecified; W00.0XXA Fall on same level due to ice and snow, initial encounter; M19.90 Unspecified osteoarthritis, unspecified site; R41.81 Age-related cognitive decline; Z82.49 Family history of ischemic heart disease and other diseases of the circulatory system; Z90.81 Acquired absence of spleen; Y93.89 Activity, other specified; Y92.098 Other place in other non-institutional residence as the place of occurrence of the external cause; Y99.8 Other external cause status; Z79.899 Other long term (current) drug therapy
CPT/HCPCS: 36415; 72100; 73502; 76000; 80048; 80307; 81001; 82306; 85007; 85025; 85610; 85730; 96374; 96375; A7015; C1713; C1887; G0480; J0690; J0696; J1100; J1170; J2001; J2250; J2270; J2405; J2704; J3010; J7120; 97116; 97530; 97535; 99285-25

== ENCOUNTER 2021-07-02 09:10 | Inpatient (IN) | payer OTHER ==
[~2021-07-02] VITALS: Ht 172.7 cm; Wt 75.2 kg
[~2021-07-02 09:10] MED LIST changes: +ASPI325T8 PO; +ERGO500027 PO; +HYDR-2765 PO
[2021-07-02] MEDS ORDERED: IV NORMAL SALINE 1000ML BAG 1,000 ML IV ONE ×2 (09:15→11:30)
[2021-07-02] MEDS ORDERED: ACETAMINOPHEN 650 MG SUPP.RECT. PR ONE (09:30)
--- NOTE | 2021-07-02 09:41 | PHYS DOC ---
Past Medical History Past Medical History: Arthritis Past Medical History Limited secondary to patient's current condition/nonverbal Past Surgical History: Other Additional Past Surgical Histo: liver ulcers removed, brain ulcers removed, spleenectomy Past Surgical History Limited secondary to patient's current condition/nonverbal Smoking Status: Never Smoker Alcohol Use: None Drug Use: None Social History Limited secondary to patient's current condition/nonverbal General Adult EDM: Chief Complaint: RAPID HEART RATE HPI: HPI: Patient is a 50-year-old male presents from [facility] with con cern for elevated heart rate that had started recently. Patient typically was in the 80s heart rate but had jumped up into the 180s but had been steady in the 150s despite multiple attempts with different medications. Dr. Toure reports trialed Cardizem and digoxin without success. Dr. Toure also reports chest x-ray noted bilateral pneumonia for which patient has been on antibiotics. Dr. Toure reports concern for possible PE. 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 Patient also is nonambulatory and contracted. Patient does have a trach with trach shield. History of present illness limited secondary to patient being nonverbal. Review of Systems: Review of Systems: Review of systems limited secondary to patient's current condition/nonverbal Heart Score: C/O Chest Pain: N/A Current Medications: Current Medications Medications (Trade) Dose Ordered Sig/Hakeem Start Time Stop Time Status Last Admin Dose Admin Acetaminophen (Tylenol Supp) 650 mg 1X ONCE 07/02/21 09:30 07/02/21 09:31 DC Sodium Chloride 1,000 ml @ 1,000 mls/hr 1X ONCE 07/02/21 09:15 07/02/21 10:14 Allergies: Allergies: Allergies Coded Allergies Type Severity Reaction Last Updated Verified No Known Drug Allergies 04/02/16 No Physical Exam: PE: Constitutional: Cachectic, extremity contractions HENT: Normocephalic, atraumatic Eyes: PERRL, conjunctiva normal, no discharge Neck: Normal range of motion, supple, tracheostomy tube with trach shield noted Lungs & Thorax: No respiratory distress, equal chest rise and fall, coarse breath sounds Abdomen: Soft, no tenderness, gastrostomy tube noted, suprapubic cath noted Skin: Warm, dry, no erythema, no rash Extremities: Contractions, no edema Neurologic: Alert, nonverbal Psychologic: Unable to assess EKG: EKG: @0928 Sinus tachycardia at 152bpm, NO ST elevation, QRS 82ms, QT/QTc 260/419ms @1707 NSR at 97bpm, NO ST elevation, QRS 82ms, QT/QTc 318/408ms Radiology/Procedures: Radiology/Procedures: PROCEDURE: CT ANGIOGRAPHY CHEST Examination: CT angiography chest with IV contrast HISTORY: History of tachycardia, fever COMPARISON: None available Technique: Axial CT angiographic images of chest were performed with IV contrast. Coronal and sagittal 3-D MIP reformats are performed. Exposure: One or more of the following individualized dose reduction techniques were utilized for this examination: 1. Automated exposure control 2. Adjustment of the mA and/or kV according to patient size 3. Use of iterative reconstruction technique FINDINGS: Tracheostomy tube is identified in the trachea. The heart size grossly appears unremarkable. The caliber of the aorta grossly appears unremarkable. There is no evidence of filling defect identified in the main pulmonary arterial trunk. There is a linear filling defect identified in the left main pulmonary artery extending into the left lower lobe pulmonary arterial branch likely a small pulmonary embolus. Small bilateral pleural effusions. Moderate left lower lobe lung consolidation changes identified likely pneumonia or atelectasis. The liver, adrenals grossly appears unremarkable. Mild degenerative changes thoracic spine. IMPRESSION: 1. Linear filling defect identified in the left main pulmonary artery extending into the left lower lobe pulmonary arterial branch likely a small pulmonary embolus, age indeterminate. 2. Moderate left lower lobe lung consolidation changes identified likely pneumonia or atelectasis. Follow-up to resolution. 3. Small bilateral pleural effusions. FOR INTERNAL CODING PURPOSES Critical result: Findings discussed with ER physician at 07/02/2021 11:01 AM. RESULT CODE: (C) 1. Electronically signed by: Quinn Mejía MD (07/02/2021 11:01 AM) [id number] Course & Med Decision Making: Course & Med Decision Making Pertinent Labs and Imaging studies reviewed. (See chart for details) [facility] of Dr. Toure with report of elevated heart rate in the 150s despite multiple medication attempts for conversion. Patient known to have pneumonia based on chest x-ray. Patient previously receiving IV antibiotics. Febrile upon arrival. Fever addressed. EKG appears to be sinus tachycardia versus SVT. Labs obtained and posted to chart. WBC elevated. Lactic acid also elevated. Patient meeting criteria for severe sepsis. Empiric antibiotics initiated. CTA chest with notation of small PE and redemonstration of known pneumonia. Lovenox provided. Patient requiring admission for further evaluation and treatment. Discussed with Dr. Toure (PCP) who is in agreement with admission. Dr. Toure requests cardiology and ID consultation. Discussed case with Dr. Bhagat (cardiology) who recommends continuation of medical management of PE and pneumonia. Reports can trial Adenosine to confirm underlying rhythm. Adenosine 6mg IVP provided with cardioversion of SVT back to NSR. Dragon Disclaimer: Dragon Disclaimer: This electronic medical record was generated, in whole or in part, using a voice recognition dictation system. Departure Departure Impression: Primary Impression: Severe sepsis Additional Impressions: Pneumonia Qualified Codes: J18.9 - Pneumonia, unspecified organism Pulmonary embolism Qualified Codes: I26.99 - Other pulmonary embolism without acute cor pulmonale SVT (supraventricular tachycardia) Disposition: ADMITTED INPATIENT Admitting Physician: Madi. Stein Condition: STABLE Referrals: NO PCP (PCP) Critical Care Time Critical care time was 30 minutes which includes time at bedside, spent in discussion of patient's care with specialists and/or family members, with i nterpretation of laboratory and/or radiological studies and is exclusive of procedures. CORTNEY RUIZ DO Jul 02, 2021 09:41
[2021-07-02 10:10] LABS: BILIRUBIN,URINE NEGATIVE (NEG); CLARITY,URINE CLEAR; COLOR,URINE YELLOW; NITRITE,URINE NEGATIVE (NEG); PROTEIN,URINE NEGATIVE (NEG-TRACE); UROBILINOGEN,URINE 0.2 mg/dL (0.2 mg/dL)
[2021-07-02 10:16] LABS: BASO # 0.1 x10^3/uL (0.0-0.2); BASO % 0 % (0-3); EOS # 0.2 x10^3/uL (0.0-0.7); EOS % 1 % (0-3); HEMATOCRIT 36.6 % (39.0-53.0); HEMOGLOBIN 11.9 g/dL (13.0-17.5); LYMPH # 3.4 x10^3/uL (1.0-4.8); LYMPH % 15 % (24-48); MEAN CORPUSCULAR HEMOGLOBIN 29 pg (25-35); MEAN CORPUSCULAR HGB CONC 32 g/dL (31-37); MEAN CORPUSCULAR VOLUME 88 fL (79-100); MONO # 1.7 x10^3/uL (0.0-1.1); MONO % 8 % (0-9); NEUT # 16.9 x10^3/uL (1.8-7.7); NEUT % 76 % (31-73); PLATELET COUNT 294 x10^3/uL (140-400); RED BLOOD COUNT 4.15 x10^6/uL (4.30-5.70); RED CELL DISTRIBUTION WIDTH 17.5 % (11.5-14.5); WHITE BLOOD COUNT 22.3 x10^3/uL (4.0-11.0)
[2021-07-02 10:24] LABS: HYALINE CASTS, URINE FEW /HPF
[2021-07-02 10:25] LABS: BACTERIA,URINE 0 /HPF (0-FEW); WBC,URINE 0 /HPF (0-4)
[2021-07-02] MEDS ORDERED: IOHEXOL 350 MG/ML 100 ML VIAL. IV ONE (10:30)
[2021-07-02 10:31] LABS: CALCIUM 7.8 mg/dL (8.5-10.1); CREATININE 0.6 mg/dL (0.7-1.3); GFR 143.8; POTASSIUM 4.3 mmol/L (3.5-5.1)
[2021-07-02 10:37] LABS: ALBUMIN 1.4 g/dL (3.4-5.0); ALBUMIN/GLOBULIN RATIO 0.4 (1.0-1.7); MAGNESIUM 2.2 mg/dL (1.8-2.4); TOTAL BILIRUBIN 0.4 mg/dL (0.2-1.0); TOTAL PROTEIN 4.9 g/dL (6.4-8.2)
--- NOTE | 2021-07-02 11:03 | RAD ---
Examination: CT angiography chest with IV contrast HISTORY: History of tachycardia, fever COMPARISON: None available Technique: Axial CT angiographic images of chest were performed with IV contrast. Coronal and sagitta l 3-D MIP reformats are performed. Exposure: One or more of the following individualized dose reduction techniques were utilized for thi s examination: 1. Automated exposure control 2. Adjustment of the mA and/or kV according to patient size 3. Use of iterative reconstruction technique FINDINGS: Tracheostomy tube is identified in the trachea. The heart size grossly appears unremarkable. The [place] of the aorta grossly appears unremarkable. There is no evidence of filling defect identified in t he main pulmonary arterial trunk. There is a linear filling defect identified in the left main pulmon tre artery extending into the left lower lobe pulmonary arterial branch likely a small pulmonary embo fide. Small bilateral pleural effusions. Moderate left lower lobe lung consolidation changes identifie d likely pneumonia or atelectasis. The liver, adrenals grossly appears unremarkable. Mild degenerativ e changes thoracic spine. IMPRESSION: 1. Linear filling defect identified in the left main pulmonary artery extending into the left lower lobe pulmonary arterial branch likely a small pulmonary embolus, age indeterminate. 2. Moderate left lower lobe lung consolidation changes identified likely pneumonia or atelectasis. F ollow-up to resolution. 3. Small bilateral pleural effusions. FOR INTERNAL CODING PURPOSES Critical result: Findings discussed with ER physician at 07/02/2021 11:01 AM. RESULT CODE: (C) 1. Electronically signed by: Quinn Mejía MD (07/02/2021 11:01 AM) [id number]
[2021-07-02] MEDS ORDERED: PIPERACILLIN/TAZOBACTAM 3.375 GM in IV NORMAL SALINE 50ML 50 ML IV ONE (11:30)
[2021-07-02] MEDS ORDERED: PIP/TAZO PER PHARMACY MC PRN (11:30)
[2021-07-02] MEDS ORDERED: ONDANSETRON PF 4 MG/2 ML VIAL. IVP PRN (11:30)
[2021-07-02] MEDS ORDERED: VANCOMYCIN 1.75 GM in IV NORMAL SALINE 500ML BAG 500 ML IV ONE (11:30)
[2021-07-02 12:22] LABS: % BANDS 5 % (0-9); % EOS 1 % (0-5); % LYMPHS 8 % (24-48); % MONOS 6 % (0-10); % SEGS 80 % (35-66); PLT ESTIMATE ADEQUATE (ADEQUATE)
[2021-07-02 12:23] LABS: ANISOCYTOSIS PRESENT
[2021-07-02] MEDS ORDERED: ADENOSINE 6 MG/2 ML VIAL. IV ONE ×2 (12:30)
[2021-07-02] MEDS ORDERED: IV NORMAL SALINE 500ML BAG 500 ML IV ONE (13:30)
--- NOTE | 2021-07-02 14:08 | EKG ---
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
--- NOTE | 2021-07-02 14:08 | EKG ---
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
[2021-07-02 20:20] VITALS: BP 109/55
[2021-07-02] MEDS: PIPERACILLIN/TAZOBACTAM 3.375 GM in IV NORMAL SALINE 50ML 50 ML IV SCH (21:10)
[2021-07-02] MEDS: VANCOMYCIN PER PHARMACY MC PRN ×2 (22:07→22:10)
--- NOTE | 2021-07-02 22:10 | NUR ---
Pharmacy Vancomycin Dosing Note S:Consulted to monitor and dose vancomycin started 07/02/21. O:PRESTON MONTOYA is a 50 year old M with Sepsis Pneumonia . Height: 5 feet, 8 inches Weight: 72.7 kg [place] Body Weight: 68.40 Adjusted Body Weight: 70.12 Dosing Weight: Actual Other Antibiotics: ZOSYN 3.375 GM Q6H LABS: Last BUN: 15 Last Creatinine: 0.6 Creatinine Clearance: 149 mL/min Last WBC: 22.3 Last Procalcitonin: Tmax (past 24 hours): Microbiology: I/O: Drug Levels: Last level: on at Last dose given 07/02/21 at Vancomycin Dosing: Loading Dose: 1750 mg x1 Dosing Weight: Actual Target Trough: 15-20 A: Based on: WT AND CRCL P: 1. Begin Vancomycin 1000 mg IV q8h 2. Follow up Trough level on 07/03/21 at 1230 3. Pharmacy will continue to monitor, follow and adjust therapy as needed. HEATHER SWENSON RPH, 07/02/21 2210 Signed: 07/02/21 at 2210 by HEATHER SWENSON RPH PHA
[2021-07-02] MEDS: VANCOMYCIN 1 GM in IV NORMAL SALINE 250ML 250 ML IV SCH (22:41)
[2021-07-03] MEDS: PIPERACILLIN/TAZOBACTAM 3.375 GM in IV NORMAL SALINE 50ML 50 ML IV SCH ×4 (01:54→18:15)
[2021-07-03 03:08] VITALS: BP 103/53
[2021-07-03] MEDS ORDERED: CHLO15MO2 PO (04:31)
[2021-07-03] MEDS ORDERED: LANS30TA6 PEG (04:31)
[2021-07-03] MEDS ORDERED: LORA10TA65 PO (04:31)
[2021-07-03] MEDS ORDERED: CEFE100B IV (04:31)
[2021-07-03] MEDS ORDERED: LACO200T PO (04:31)
[2021-07-03] MEDS ORDERED: SCOP1PAT12 TP (04:31)
[2021-07-03] MEDS ORDERED: METR500T PEG (04:31)
[2021-07-03] MEDS: VANCOMYCIN 1 GM in IV NORMAL SALINE 250ML 250 ML IV SCH (04:49)
[2021-07-03 06:33] VITALS: BP 94/52
[2021-07-03] MEDS ORDERED: HYDROcodon/APAP 7.5/325MG ORAL 15 ML SOLUTION PO PRN ×2 (09:00→09:30)
--- NOTE | 2021-07-03 09:44 | HP ---
ADMIT DATE: 07/03/2021 HISTORY OF PRESENT ILLNESS: The patient is a 50-year-old male patient who was transferred from [facility] with persistent tachycardia. We treated him with IV metoprolol as well as digoxin 500 mcg intravenously. He has received a liter of normal saline without much improvement and given loading dose of Cardizem 10 mg and started on a continuous infusion of 10 mg of Cardizem and he became even more hypotensive without really controlling the heart rate, and therefore, a decision was made to transfer him to [facility] Emergency Room for further evaluation and perhaps consult the Infectious Disease as well as the truck engine technician where he was extensively investigated and was found to have a marked leukocytosis with a white cell count 22,000 and his lactic acid was slightly high also at 2.[address] angio of the chest, which basically showed that the patient has linear filling defects identified in the left main pulmonary artery extending into the left lower lobe pulmonary arterial branch, likely a small pulmonary embolus, moderate left lower lobe lung consolidation changes identified, likely pneumonia or atelectasis. He has small bilateral pleural effusion. He received 2 liters normal saline and was started on vancomycin and Zosyn. He did receive actually 6 mg of adenosine and another 12 mg of adenosine and his heart rate has slowed down and was admitted to continue on IV antibiotic as well as Lovenox for treatment of pulmonary emboli. The patient is encephalopathic and does not give any useful information. The patient is a 50-year-old male patient who has significant for IV drug abuse and was reportedly recently got out of custodial and was living in an old home. The home he was living reportedly has mold and started noticing worsening shortness of breath. He started using his nebulizer multiple times for worsening shortness of breath. On the day of admission, he became less responsive and subsequently had had a cardiac arrest. EMS was called and he received CPR with spontaneous return of circulation after about 6-8 minutes. On arrival to the Emergency Room, he was intubated and while in the Emergency Room, he was noted to have tonic-clonic seizures and acute encephalopathy was also noted. Drug screen was positive for amphetamine abuse. He was also diagnosed with rhabdomyolysis and methicillin-resistant Staphylococcus aureus infection. His stay at hospital was complicated by MRSA pneumonia and MRSA bacteremia, acute renal failure and rash and prolonged ventilatory weaning. He underwent tracheostomy tube placement on 06/02 and he started weaning on 06/09/2021. He was also on 2 IV antibiotics and was transitioned to tracheal shield. Once stabilized, the patient was transferred to [facility] where he was continued on levofloxacin as well as vancomycin. He was eventually weaned off the ventilator and was actually tolerating tracheostomy tube, tolerating trach shield. He has one episode of severe tachycardia. At that time, he was septic and was pancultured and was started on IV antibiotic. Apparently yesterday, he again developed an episode of severe tachycardia that has failed to respond to IV metoprolol, IV digoxin, fluid resuscitation and Cardizem bolus dose and Cardizem drip and therefore, he was transferred to this facility. PAST MEDICAL HISTORY: Significant for evacuation of a brain hematoma, splenectomy and repair of the liver due to trauma and most recently a gastrostomy tube as well as a tracheostomy tube placement. PAST SURGICAL HISTORY: Significant for intravenous drug abuse. ALLERGIES: He has no known drug allergies. MEDICATIONS: He was on following medications: Loratadine 10 mg once a day, cefepime 2 grams IV q.8 hourly, metronidazole 500 mg 3 times a day, methocarbamol 500 mg 3 times a day, aspirin 325 mg daily, hydrocodone/APAP 7.5/325 in 15 mL solution, 15 mL every 6 hours. He is also on lacosamide 200 mg twice a day, chlorhexidine gluconate 15 mL twice a day, scopolamine transdermal patch topically every 72 hours, lansoprazole 30 mg per feeding tube twice a day, ergocalciferol 50,000 international unit once a week. FAMILY HISTORY: Noncontributory. SOCIAL HISTORY: Unobtainable as the patient is continued to be encephalopathic. He apparently seemed to live alone and he continues to smoke and use IV drug use in the form of amphetamine. PHYSICAL EXAMINATION: GENERAL: On arrival to the Emergency Room of [facility], the patient was pale, cachectic, but jaundice, cyanosed. VITAL SIGNS: His heart rate was 152, blood pressure is 126/54, temperature was 101.5, respiratory rate was 22 and oxygen saturation was 100% on 10 liters oxygen by tracheal collar. HEAD, EYES, EARS, NOSE, AND THROAT: Normocephalic, atraumatic. NECK: Supple. HEART: Normal first and second heart sounds. Sinus tachycardia. No gallop, rub or murmur. CHEST: Shows central trachea with tracheostomy tube in place. Equal bilateral expansion, air entry, vesicular breath sounds. I could not really appreciate any crepitation or rhonchi. ABDOMEN: Scaphoid, soft with gastrostomy tube in place. NEUROLOGIC: He continues to be encephalopathic. He has also fixed flexion contraction of all 4 limbs. LABORATORY DATA: On arrival to the Emergency Room showed a serum sodium 141, potassium 4.3, chloride 108, bicarbonate 27, anion gap of 6, BUN 15, creatinine 0.6. Estimated GFR was 143 mL per minute. His glucose was 93. Lactic acid was slightly elevated at 2.1, calcium was 7.8, magnesium was 2.2. Total bilirubin and alkaline phosphatase are normal. AST, ALT slightly elevated. His CK was 186. His beta natriuretic peptide was 1245. Total protein was 4.9, albumin was 1.4. Urinalysis essentially unremarkable and his coronavirus by rapid testing was negative. The CT angio of the chest showed tracheostomy tube was identified in the trachea. The heart size grossly appears unremarkable. The caliber of the aorta grossly appears unremarkable. There is no evidence of filling defects identified in the main pulmonary arterial trunk. There is a linear filling defect identified in the left main pulmonary artery extending into the left lower lobe pulmonary artery, likely a small pulmonary embolus, small bilateral pleural effusion, moderate left lower lobe lung consolidation, changes identified, likely pneumonia versus atelectasis. The liver, adrenal glands appear unremarkable, mild degenerative changes throughout the thoracic spine. ASSESSMENT AND PLAN: The patient was given 2 liters of fluid, started on Lovenox as well as started on Zosyn and vancomycin. I will reconcile his medications and consult the infectious disease specialist as well as truck engine technician for recurrent episode of supraventricular tachycardia. ANGIE DR: Franchesca TID: [id number]
--- NOTE | 2021-07-03 09:54 | CONS ---
DATE OF CONSULTATION: 07/03/2021 REQUESTING PHYSICIAN: Dr. Toure. REASON FOR CONSULTATION: Fever, leukocytosis, MRSA pneumonia, etc. HISTORY OF PRESENT ILLNESS: This is a 50-year-old gentleman who has been transferred from [facility]. [facility] [id number] cardiac arrest, anoxic brain injury, has a PEG tube. He was in a respiratory failure. He had MRSA pneumonia, urinary tract infection and intractable seizures and the patient now is transferred because of elevated heart rate in 150s and despite multiple attempts with medication, they were not able to control at [facility]. The patient also was found to have PE. The patient is nonverbal with open eyes, no response. The patient has contractures. He is on oxygen. No nausea, vomiting, diarrhea noted. The patient did have a 101.5 fever here and tachycardic. The patient is on Zosyn and vancomycin. PAST MEDICAL HISTORY: Positive for anoxic brain injury, persistent vegetative state, respiratory failure, MRSA and history of MRSA pneumonia, intractable seizures, drug use, cardiac arrest. SOCIAL HISTORY: Unable to obtain other than drug use. ALLERGIES: No known drug allergies. CURRENT MEDICATIONS: Reviewed. REVIEW OF SYSTEMS: As in HPI. All other systems reviewed are negative through the patient's RN. The patient is not able to provide any information. PHYSICAL EXAMINATION: GENERAL: Awake gentleman who is nonverbal, not in distress. VITAL SIGNS: Temperature max is 101.5, pulse up to 152 now down to 104, respirations 20, blood pressure 94/52. HEENT: Both pupils are round and reacting. No conjunctival lesion. No oral lesion. NECK: Supple, no JVP. LUNGS: Clear. HEART: S1, S2 regular. No gallop or murmur. ABDOMEN: Soft, nontender. PEG tube is in place. EXTREMITIES: Contractures present. Minor skin breakdown in the sacrococcygeal area. NEUROLOGIC: The patient is unresponsive. LABORATORY DATA: White count is 22.3. BUN and creatinine is normal. Lactic acid was up to 2.1, albumin is 1.4. Urinalysis unremarkable. COVID rapid is negative. Chest CT showed a linear filling defect in the left main pulmonary artery extending into the left lower lobe, which is a small pulmonary embolus, moderate left lower lobe consolidation. IMPRESSION 1. Fever. 2. Leukocytosis. 3. Pulmonary embolus,. 4. Pneumonia. 5. Persistent vegetative state, status post cardiac arrest. 6. History of MRSA. 7. Intractable seizures. 8. Tachycardia. RECOMMENDATIONS: Change vancomycin to Zyvox. Continue Zosyn, supportive care. Overall, prognosis is poor. The patient needs to be a DNR/DNI and even consider comfort care. Thank you very much, Dr. Toure for giving me opportunity to participate in this patient's care. ROSALIA/SAVITA DR: Tiburcio TID: [id number]
[2021-07-03] MEDS: ANTI-COAG MONITOR BY PHARMACY. MC PRN (10:06)
[2021-07-03 11:00] VITALS: BP 109/58
--- NOTE | 2021-07-03 11:25 | NUR ---
SW following. Discussed with RN, pt from [facility], trach collar, NPO, PEG, contracted, non verbal. COVID-19 negative. SW discussing with [facility], what needs to be done for pt to return. SW will continue to follow.
[2021-07-03] MEDS ORDERED: ERGOCALCIFEROL (VITAMIN D2) 50,000 UNIT CAPSULE. PO SCH (12:00)
--- NOTE | 2021-07-03 12:06 | PDOC2 ---
DESTINEE CRAIG SUPERVISOR LEAD REFINERY 07/03/21 1206: CARDIAC CONSULT DATE OF CONSULT Date of Consult DATE: 07/03/21 TIME: 11:58 REASON FOR CONSULT Reason for Consult: tachycardia REFERRING PHYSICIAN Referring Physician: Dr. Toure SOURCE Source: Chart review HISTORY OF PRESENT ILLNESS HISTORY OF PRESENT ILLNESS This is a 50 yo female who presented from [facility] secondary to persistent tachycardia. He was initially admitted to [facility] at [place], [place], on 05/11/2021 after becoming more short of breath at home and then having a cardiac arrest. EMS obtained return of spontaneous circulation after about 5-8 minutes. He was intubated in the ER. He was treated for MRSA pneumonia, Pseudomonas UTI, seizures, rhabdomyolysis and acute renal failure while hospitalized. Was unable to be weaned from vent and had a trach eostomy placed 06/03/21. He was eventually able to be weaned off mechanical ventilation and presented to [facility] on trach shield. He went back to mechanical ventilation 06/22/21, due to gram + cocci sepsis and possible pneumonia. Was eventually able to weaned from ventilation and placed on trach shield. He developed fevers and tachycardiac with HR in 150's on 07/02/21. Hr continue to be elevated despite metoprolol and Digoxin. Given persistent tachycardia and development of hypotensive, patient was transferred to [facility] for further evaluation and care. Was noted in SVT upon arrival to ED. Was given adenosine 6mg x1 and converted back to NSR. PAST MEDICAL HISTORY Cardiovascular: Other (cardiac arrest ) Pulmonary: Pneumonia, Other CENTRAL NERVOUS SYSTEM: Seizure, Other (anoxic brain injury ) GI: GERD, Peptic Ulcer disease PAST SURGICAL HISTORY Past Surgical History: Other (tracheostomy, spleenectomy ) FAMILY HISTORY Family History: Family History Unknown SOCIAL HISTORY Drugs: Crystal meth (h/o meth abuse ) CURRENT MEDICATIONS CURRENT MEDICATIONS Current Medications Medications (Trade) Dose Ordered Sig/Hakeem Route PRN Reason Start Time Stop Time Status Last Admin Dose Admin Adenosine (Adenocard) 6 mg 1X ONCE IV 07/02/21 12:30 07/02/21 12:42 DC 07/02/21 13:40 Sodium Chloride 500 ml @ 500 mls/hr 1X ONCE IV 07/02/21 13:30 07/02/21 14:29 DC 07/02/21 13:45 Piperacillin Sod/ Tazobactam Sod 3.375 gm/Sodium Chloride 50 ml @ 100 mls/hr Q6HRS IV 07/02/21 20:00 07/03/21 06:44 Vancomycin HCl 1 gm/Sodium Chloride 250 ml @ 250 mls/hr Q8H IV 07/02/21 21:00 07/03/21 08:14 DC 07/03/21 04:49 Linezolid/Dextrose 300 ml @ 300 mls/hr Q12HR IV 07/03/21 09:00 07/03/21 10:54 Info (Anti-Coagulation Monitoring By Pharmacy) 1 each PRN DAILY PRN MC PER PROTOCOL 07/03/21 10:15 07/03/21 10:06 ALLERGIES ALLERGIES: Coded Allergies: No Known Drug Allergies (Unverified , 04/02/16) ROS Review of System unobtainable PHYSICAL EXAM General: No acute distress, Other (eyes open, does not respond ) HEENT: Atraumatic, Other (tracheostomy ) Heart: Regular rate (SR/ST) Abdomen: Soft Extremities: No edema (mild right arm and left hand edema. No significant LE edema ) Neuro: Other (unable to assess ) Psych/Mental Status: Other (does not follow commands ) MUSCULOSKELETAL: Other (contractures ) VITALS/I&O VITALS/I&O: Vital Signs Date Time Temp Pulse Resp B/P (MAP) Pulse Ox O2 Delivery O2 Flow Rate FiO2 07/03/21 06:33 98.2 104 20 94/52 (66) 96 Tracheal Collar 98.2 07/02/21 20:25 10.0 I & O 07/02/21 07/02/21 07/03/21 15:00 23:00 07:00 Intake Total 2550 ml 500 ml Output Total 600 ml Balance 2550 ml 500 ml -600 ml LABS Lab: Laboratory Tests Test 07/02/21 13:15 Lactic Acid Level 1.5 mmol/L (0.4-2.0) ASSESSMENT/PLAN ASSESSMENT/PLAN 1. Leukocytosis, lactic acidosis, fevers 2. MRSE bacteremia 06/22 3. PSVT; s/p 6mg adenosine with conversion to SR 4. Acute PE 5. Acute respiratory failure s/p trach; weaned from vent 6. Recent and MRSA PNA 7. Anoxic brain injury secondary to recent OOH arrest. 8. Encephalopathy, seizures; on Keppra 9. H/o IV methamphetamine abuse Recommendations Start low-dose metoprolol for rate control ASA therapy TSH Ongoing treatment of PNA, bacteremia Supportive care EDMUNDO LAZO MD 07/03/21 1710: CARDIAC CONSULT ASSESSMENT/PLAN ASSESSMENT/PLAN Patient seen and examined I agree with our nurse practitioners assessment and plan. Pneumonia, lactic acidosis, fever. MRSE bacteremia 06/22. Continuing antibiotics and supportive care. PSVT; s/p 6mg adenosine with conversion to SR. metoprolol as above. Acute PE. Anticoagulation as above. Acute respiratory failure s/p trach; weaned from vent Recent and MRSA PNA Anoxic brain injury secondary to recent OOH arrest. Encephalopathy, seizures; on Keppra H/o IV methamphetamine abuse DESTINEE CRAIG APRN Jul 03, 2021 12:06 EDMUNDO LAZO MD Jul 03, 2021 17:10
[2021-07-03 15:00] VITALS: BP 115/60
[2021-07-03] MEDS: METHOCARBAMOL 500 MG TABLET PO SCH ×2 (17:19→21:56)
[2021-07-03] MEDS: LACOSAMIDE 200 MG TABLET PO SCH ×2 (17:19→21:56)
[2021-07-03] MEDS: ASPIRIN 325 MG TABLET PO SCH (17:20)
[2021-07-03] MEDS: LANSOPRAZOLE 30 MG TAB.RAP.DR PEG SCH ×2 (17:20→21:56)
--- NOTE | 2021-07-03 17:55 | PN ---
DATE: 07/03/2021 SUBJECTIVE: The patient is resting, slightly propped up in bed, in no apparent respiratory distress. He is encephalopathic, nonverbal. He does open his eyes, does not track or follow commands. OBJECTIVE: GENERAL: When I examined him, he was pale, but no jaundice, cyanosis or thyromegaly. No jugular venous distention. No limb edema. VITAL SIGNS: His heart rate was 104, blood pressure was 94/52, temperature was 98.2, respiratory rate 20, and oxygen saturation was 96% on FiO2 of 40% by trach shield. HEAD, EYES, EARS, NOSE AND THROAT: Normocephalic, atraumatic. NECK: Supple. HEART: Normal first and second heart sounds. No gallop, rub or murmur. CHEST: Shows central trachea, equal bilateral chest expansion, air entry, vesicular breath sounds with crepitation mostly posteriorly on the left side. I could not appreciate any rhonchi. ABDOMEN: Scaphoid, soft with a gastrostomy tube in place. There is no guarding or rigidity. No organomegaly. All hernial orifice intact. Bowel sounds normal. NEUROLOGIC: He is encephalopathic. He does open his eyes, but does not track or follow commands. He has severe anoxic encephalopathy with fixed flexion contraction of all four limbs. LABORATORY DATA: He has no lab work done this morning. ASSESSMENT: 1. Severe anoxic encephalopathy. 2. Acute hypoxic respiratory failure requiring intubation and mechanical ventilation. He is status post out of hospital cardiac arrest. 3. History of pseudomonas pneumonia before. 4. Recurrent episode of what seemed to be supraventricular tachycardia. 5. Pulmonary embolism. 6. Left lower lobe pneumonia. 7. Seizure disorder. PLAN: I reconciled all his medications. Continue with lacosamide for seizure disorder. He was started on Lovenox 1 mg/kg subcutaneously twice a day. His antibiotic was changed to Zosyn and vancomycin since the patient seems to be responding at least clinically. I have already consulted the Infectious Disease specialist as well as the air conditioner installer helper. I will repeat all his lab work again tomorrow. YANN DR: Franchesca TID: [phone]
[2021-07-03] MEDS: CHLORHEXIDINE 0.12% 15 ML MOUTHWASH. MM SCH ×2 (18:14→21:56)
[2021-07-03 19:00] VITALS: BP 113/54
[2021-07-03] MEDS: METOPROLOL TART IMMED RELEASE 25 MG TABLET. PO SCH (21:57)
[2021-07-03 23:00] VITALS: BP 112/54
[2021-07-04] MEDS: PIPERACILLIN/TAZOBACTAM 3.375 GM in IV NORMAL SALINE 50ML 50 ML IV SCH ×4 (00:21→18:17)
[2021-07-04 03:00] VITALS: BP 115/62
[2021-07-04 07:00] VITALS: BP 108/64
[2021-07-04 07:10] LABS: BASO # 0.1 x10^3/uL (0.0-0.2); BASO % 1 % (0-3); EOS # 0.1 x10^3/uL (0.0-0.7); EOS % 1 % (0-3); HEMOGLOBIN 11.3 g/dL (13.0-17.5); LYMPH # 2.6 x10^3/uL (1.0-4.8); LYMPH % 14 % (24-48); MEAN CORPUSCULAR HEMOGLOBIN 29 pg (25-35); MEAN CORPUSCULAR HGB CONC 33 g/dL (31-37); MEAN CORPUSCULAR VOLUME 88 fL (79-100); MONO # 1.3 x10^3/uL (0.0-1.1); MONO % 7 % (0-9); NEUT # 14.8 x10^3/uL (1.8-7.7); NEUT % 78 % (31-73); PLATELET COUNT 344 x10^3/uL (140-400); RED BLOOD COUNT 3.89 x10^6/uL (4.30-5.70); RED CELL DISTRIBUTION WIDTH 17.5 % (11.5-14.5); WHITE BLOOD COUNT 18.9 x10^3/uL (4.0-11.0)
[2021-07-04 07:29] LABS: ALBUMIN 1.2 g/dL (3.4-5.0); ALBUMIN/GLOBULIN RATIO 0.4 (1.0-1.7); CALCIUM 7.8 mg/dL (8.5-10.1); CREATININE 0.7 mg/dL (0.7-1.3); GFR 120.4; POTASSIUM 3.2 mmol/L (3.5-5.1); TOTAL BILIRUBIN 0.3 mg/dL (0.2-1.0); TOTAL PROTEIN 4.6 g/dL (6.4-8.2)
--- NOTE | 2021-07-04 08:43 | PDOC ---
Infectious Disease Note Subjective Subjective un responsive ROS ROS no n/v/d/ Vital Sign Vital Signs Vital Signs Date Time Temp Pulse Resp B/P (MAP) Pulse Ox O2 Delivery O2 Flow Rate FiO2 07/04/21 08:16 94 Tracheal Collar 10.0 07/04/21 07:00 98.3 96 22 108/64 (79) 98.3 Physical Exam PHYSICAL EXAM GENERAL: Awake gentleman who is nonverbal, not in distress. VITAL SIGNS: stable HEENT: Both pupils are round and reacting. No conjunctival lesion. No oral lesion. NECK: Supple, no JVP. LUNGS: Clear. HEART: S1, S2 regular. No gallop or murmur. ABDOMEN: Soft, nontender. PEG tube is in place. EXTREMITIES: Contractures present. Minor skin breakdown in the sacrococcygeal area. NEUROLOGIC: The patient is unresponsive. Labs Lab Laboratory Tests Test 07/03/21 12:30 07/04/21 06:40 Thyroid Stimulating Hormone (TSH) 4.300 uIU/mL (0.358-3.74) White Blood Count 18.9 x10^3/uL (4.0-11.0) Red Blood Count 3.89 x10^6/uL (4.30-5.70) Hemoglobin 11.3 g/dL (13.0-17.5) Hematocrit 34.0 % (39.0-53.0) Mean Corpuscular Volume 88 fL (79-100) Mean Corpuscular Hemoglobin 29 pg (25-35) Mean Corpuscular Hemoglobin Concent 33 g/dL (31-37) Red Cell Distribution Width 17.5 % (11.5-14.5) Platelet Count 344 x10^3/uL (140-400) Neutrophils (%) (Auto) 78 % (31-73) Lymphocytes (%) (Auto) 14 % (24-48) Monocytes (%) (Auto) 7 % (0-9) Eosinophils (%) (Auto) 1 % (0-3) Basophils (%) (Auto) 1 % (0-3) Neutrophils # (Auto) 14.8 x10^3/uL (1.8-7.7) Lymphocytes # (Auto) 2.6 x10^3/uL (1.0-4.8) Monocytes # (Auto) 1.3 x10^3/uL (0.0-1.1) Eosinophils # (Auto) 0.1 x10^3/uL (0.0-0.7) Basophils # (Auto) 0.1 x10^3/uL (0.0-0.2) Sodium Level 143 mmol/L (136-145) Potassium Level 3.2 mmol/L (3.5-5.1) Chloride Level 109 mmol/L (98-107) Carbon Dioxide Level 27 mmol/L (21-32) Anion Gap 7 (6-14) Blood Urea Nitrogen 11 mg/dL (8-26) Creatinine 0.7 mg/dL (0.7-1.3) Estimated GFR (Cockcroft-Gault) 120.4 BUN/Creatinine Ratio 16 (6-20) Glucose Level 134 mg/dL (70-99) Calcium Level 7.8 mg/dL (8.5-10.1) Total Bilirubin 0.3 mg/dL (0.2-1.0) Aspartate Amino Transf (AST/SGOT) 47 U/L (15-37) Alanine Aminotransferase (ALT/SGPT) 53 U/L (16-63) Alkaline Phosphatase 80 U/L (46-116) Total Protein 4.6 g/dL (6.4-8.2) Albumin 1.2 g/dL (3.4-5.0) Albumin/Globulin Ratio 0.4 (1.0-1.7) Micro Microbiology 07/02/21 Blood Culture - Preliminary, Resulted NO GROWTH AFTER 1 DAY Objective Assessment IMPRESSION 1. Fever. 2. Leukocytosis. 3. Pulmonary embolus,. 4. Pneumonia. 5. Persistent vegetative state, status post cardiac arrest. 6. History of MRSA. 7. Intractable seizures. 8. Tachycardia. Plan Plan of Care cont antibiotics cont supportive care consider hospice FOSTER GUERIN MD Jul 04, 2021 08:43
[2021-07-04] MEDS: CHLORHEXIDINE 0.12% 15 ML MOUTHWASH. MM SCH ×2 (10:07→22:10)
[2021-07-04] MEDS: LANSOPRAZOLE 30 MG TAB.RAP.DR PEG SCH ×2 (10:08→22:03)
[2021-07-04] MEDS: METOPROLOL TART IMMED RELEASE 25 MG TABLET. PO SCH ×2 (10:08→22:03)
[2021-07-04] MEDS: ASPIRIN 325 MG TABLET PO SCH (10:08)
[2021-07-04] MEDS: METHOCARBAMOL 500 MG TABLET PO SCH ×3 (10:08→22:03)
[2021-07-04] MEDS: CETIRIZINE HCL 10 MG TABLET. PO SCH (10:08)
[2021-07-04] MEDS: SCOPOLAMINE 1.5MG PATCH. TD SCH (10:08)
[2021-07-04] MEDS: LACOSAMIDE 200 MG TABLET PO SCH ×2 (10:08→22:03)
[2021-07-04] MEDS ORDERED: POTASSIUM BICARB 20 MEQ EFFERVESCENT TABLET. PEG ONE (10:30)
[2021-07-04 11:00] VITALS: BP 112/62
--- NOTE | 2021-07-04 11:07 | NUR ---
SW following. Discussed with RN, updates faxed to [facility], and have been submitted for insurance auth. Pt ready for discharge when insurance approves. SW will continue to follow.
--- NOTE | 2021-07-04 11:09 | PDOC ---
DESTINEE CRAIG TELEPHONE SALES REPRESENTATIVE 07/04/21 1109: CARDIO Progress Notes Date and Time Date of Service 07/04/21 Time of Evaluation 1105 Subjective Subjective: Other (non-responsive ) Vitals Vitals Vital Signs Date Time Temp Pulse Resp B/P (MAP) Pulse Ox O2 Delivery O2 Flow Rate FiO2 07/04/21 11:00 99.2 83 22 112/62 (79) 93 Tracheal Collar 10.0 99.2 Weight Weight [ ] Input and Output Intake and Output Intake and Output 07/04/21 07:00 Intake Total 540 ml Output Total 800 ml Balance -260 ml Intake Oral 0 ml Tube Feeding 390 ml Other 150 ml Output Urine Total 800 ml Laboratory Labs Laboratory Tests Test 07/03/21 12:30 07/04/21 06:40 Thyroid Stimulating Hormone (TSH) 4.300 uIU/mL (0.358-3.74) White Blood Count 18.9 x10^3/uL (4.0-11.0) Red Blood Count 3.89 x10^6/uL (4.30-5.70) Hemoglobin 11.3 g/dL (13.0-17.5) Hematocrit 34.0 % (39.0-53.0) Mean Corpuscular Volume 88 fL (79-100) Mean Corpuscular Hemoglobin 29 pg (25-35) Mean Corpuscular Hemoglobin Concent 33 g/dL (31-37) Red Cell Distribution Width 17.5 % (11.5-14.5) Platelet Count 344 x10^3/uL (140-400) Neutrophils (%) (Auto) 78 % (31-73) Lymphocytes (%) (Auto) 14 % (24-48) Monocytes (%) (Auto) 7 % (0-9) Eosinophils (%) (Auto) 1 % (0-3) Basophils (%) (Auto) 1 % (0-3) Neutrophils # (Auto) 14.8 x10^3/uL (1.8-7.7) Lymphocytes # (Auto) 2.6 x10^3/uL (1.0-4.8) Monocytes # (Auto) 1.3 x10^3/uL (0.0-1.1) Eosinophils # (Auto) 0.1 x10^3/uL (0.0-0.7) Basophils # (Auto) 0.1 x10^3/uL (0.0-0.2) Sodium Level 143 mmol/L (136-145) Potassium Level 3.2 mmol/L (3.5-5.1) Chloride Level 109 mmol/L (98-107) Carbon Dioxide Level 27 mmol/L (21-32) Anion Gap 7 (6-14) Blood Urea Nitrogen 11 mg/dL (8-26) Creatinine 0.7 mg/dL (0.7-1.3) Estimated GFR (Cockcroft-Gault) 120.4 BUN/Creatinine Ratio 16 (6-20) Glucose Level 134 mg/dL (70-99) Calcium Level 7.8 mg/dL (8.5-10.1) Total Bilirubin 0.3 mg/dL (0.2-1.0) Aspartate Amino Transf (AST/SGOT) 47 U/L (15-37) Alanine Aminotransferase (ALT/SGPT) 53 U/L (16-63) Alkaline Phosphatase 80 U/L (46-116) Total Protein 4.6 g/dL (6.4-8.2) Albumin 1.2 g/dL (3.4-5.0) Albumin/Globulin Ratio 0.4 (1.0-1.7) Microbiology Micro Microbiology 07/02/21 Blood Culture - Preliminary, Resulted NO GROWTH AFTER 1 DAY Physical Exam HEENT: Neck Supple W Full Motion, Other (tracheostomy ) Chest: Symmetric LUNGS: Other (diminished bases) Heart: RRR Abdomen: Other (soft ) Extremities: Other (contractures ) Neurology: other (non-responsive ) Assessment Assessment 1. Leukocytosis, lactic acidosis, fevers 2. MRSE bacteremia 06/22 3. PSVT; s/p 6mg adenosine with conversion to SR. Presently maintaining SR 4. Acute PE; treatment dosing Lovenox 5. Acute respiratory failure s/p trach; weaned from vent 6. Recent and MRSA PNA 7. Anoxic brain injury secondary to recent OOH arrest. 8. Encephalopathy, seizures; on Keppra 9. H/o IV methamphetamine abuse 10. Hypokalemia; replacement ordered 11. Protein calorie malnutrition Recommendations Continue low-dose metoprolol for rate control ASA therapy Ongoing treatment of PNA, bacteremia Supportive care Prognosis poor Justicifation of Admission Dx: Justifications for Admission: Justification of Admission Dx: Yes Comments: PSVT Acute respiratory failure Leukosytosis, lactic acidosis, PNA EDMUNDO LAZO MD 07/04/21 1639: CARDIO Progress Notes Assessment Assessment Patient seen and examined. I agree with our nurse practitioners assessment and plan. Leukocytosis, lactic acidosis, MRSE bacteremia 06/22. Continuing antibiotics and supportive treatment. PSVT; s/p 6mg adenosine with conversion to SR. Presently maintaining SR Acute PE; treatment dosing Lovenox Acute respiratory failure s/p trach; weaned from vent Anoxic brain injury secondary to recent OOH arrest. Encephalopathy, seizures; on Keppra H/o IV methamphetamine abuse Hypokalemia; replacement ordered DESTINEE CRAIG APRN Jul 04, 2021 11:09 EDMUNDO LAZO MD Jul 04, 2021 16:39
[2021-07-04] MEDS ORDERED: POTASSIUM BICARB 20 MEQ EFFERVESCENT TABLET. PO ONE (13:00)
[2021-07-04 15:00] VITALS: BP 125/71
--- NOTE | 2021-07-04 15:39 | PN ---
DATE: 07/04/2021 SUBJECTIVE: The patient is resting, slightly propped up in bed, in no apparent distress. He is encephalopathic and nonverbal. Nursing staff, however, did not voice any concern except that his potassium was low. He is afebrile, hemodynamically stable. PHYSICAL EXAMINATION: GENERAL: When I examined him, he was pale, no jaundice, cyanosis or thyromegaly. No jugular venous distention. No limb edema. VITAL SIGNS: His heart rate was 96, blood pressure was 108/64, temperature was 98.3, respiratory rate was 22 and oxygen saturation was 94% on 10 liters of oxygen by trach shield. HEAD, EYES, EARS, NOSE, AND THROAT: Normocephalic, atraumatic. NECK: Supple. HEART: Showed normal first and second heart sounds, no gallop, rub or murmur. CHEST: Clear to auscultation, no crepitation or rhonchi. ABDOMEN: Distended, soft, nontender with a gastrostomy tube in place. No guarding or rigidity. No organomegaly. All hernial orifices are intact. Bowel sounds normal. NEUROLOGIC: He was encephalopathic, nonverbal. He does open his eyes, but does not track or follow commands. He has fixed flexion contraction of all 4 limbs. He has an indwelling Ely catheter. His intake was 3050, output was 600. LABORATORY DATA: As of this morning, his white cell count is down to 18,900, hemoglobin 11, hematocrit 34, MCV 88 and platelet count of 344,000. His chemistry showed a serum sodium 143, potassium 3.2, chloride 109, bicarbonate 27, anion gap of 7, BUN 11, creatinine was 0.7. Estimated GFR was 120 mL per minute. His glucose 134, calcium was 7.8. Total bilirubin, AST, ALT, alkaline phosphatase were normal. Total protein was 4.6, albumin was 1.2. ASSESSMENT: 1. Severe anoxic encephalopathy. 2. Acute hypoxic respiratory failure requiring intubation, mechanical ventilation and subsequent tracheostomy tube placement. 3. Status post out of hospital cardiac arrest. 4. History of Pseudomonas pneumonia before. 5. Recurrent episode of what seemed to be supraventricular tachycardia. 6. Pulmonary embolism. 7. Left lower lobe pneumonia. 8. Seizure disorder. 9. Hypokalemia. 10. Severe protein-calorie malnutrition. PLAN: To continue with all his medications including his antibiotic. Continue with nutritional support. We will replenish his potassium. I did speak with the clinical case manager to send a referral to [facility]. If he is accepted, we will transfer him there today. AYLIN/GREER DR: Franchesca TID: [id number]
[2021-07-04 19:43] VITALS: BP 105/71
[2021-07-04 23:15] VITALS: BP 119/75
[2021-07-05 03:00] VITALS: BP 133/59
[2021-07-05] MEDS: PIPERACILLIN/TAZOBACTAM 3.375 GM in IV NORMAL SALINE 50ML 50 ML IV SCH ×4 (06:03→17:39)
[2021-07-05 06:43] LABS: BASO # 0.1 x10^3/uL (0.0-0.2); BASO % 1 % (0-3); EOS # 0.3 x10^3/uL (0.0-0.7); EOS % 2 % (0-3); HEMATOCRIT 33.9 % (39.0-53.0); HEMOGLOBIN 11.3 g/dL (13.0-17.5); LYMPH # 3.1 x10^3/uL (1.0-4.8); LYMPH % 19 % (24-48); MEAN CORPUSCULAR HEMOGLOBIN 30 pg (25-35); MEAN CORPUSCULAR HGB CONC 33 g/dL (31-37); MEAN CORPUSCULAR VOLUME 91 fL (79-100); MONO # 1.3 x10^3/uL (0.0-1.1); MONO % 8 % (0-9); NEUT # 11.4 x10^3/uL (1.8-7.7); NEUT % 70 % (31-73); PLATELET COUNT 368 x10^3/uL (140-400); RED BLOOD COUNT 3.72 x10^6/uL (4.30-5.70); RED CELL DISTRIBUTION WIDTH 17.3 % (11.5-14.5); WHITE BLOOD COUNT 16.3 x10^3/uL (4.0-11.0)
[2021-07-05 06:58] LABS: ALBUMIN 1.2 g/dL (3.4-5.0); ALBUMIN/GLOBULIN RATIO 0.3 (1.0-1.7); CALCIUM 7.7 mg/dL (8.5-10.1); CREATININE 0.6 mg/dL (0.7-1.3); GFR 143.8; POTASSIUM 4.2 mmol/L (3.5-5.1); TOTAL BILIRUBIN 0.3 mg/dL (0.2-1.0); TOTAL PROTEIN 4.7 g/dL (6.4-8.2)
[2021-07-05 07:00] VITALS: BP 135/66
[2021-07-05] MEDS: LANSOPRAZOLE 30 MG TAB.RAP.DR PEG SCH ×2 (09:11→22:26)
[2021-07-05] MEDS: ASPIRIN 325 MG TABLET PO SCH (09:11)
[2021-07-05] MEDS: CETIRIZINE HCL 10 MG TABLET. PO SCH (09:11)
[2021-07-05] MEDS: LACOSAMIDE 200 MG TABLET PO SCH ×2 (09:11→22:26)
[2021-07-05] MEDS: METHOCARBAMOL 500 MG TABLET PO SCH ×3 (09:11→22:26)
[2021-07-05] MEDS: CHLORHEXIDINE 0.12% 15 ML MOUTHWASH. MM SCH ×2 (09:11→22:27)
[2021-07-05] MEDS: METOPROLOL TART IMMED RELEASE 25 MG TABLET. PO SCH ×2 (09:12→22:27)
[2021-07-05 11:00] VITALS: BP 129/63
--- NOTE | 2021-07-05 11:04 | PDOC ---
Infectious Disease Note Subjective Subjective Patient is not responsive ROS ROS No nausea vomiting diarrhea Vital Sign Vital Signs Vital Signs Date Time Temp Pulse Resp B/P (MAP) Pulse Ox O2 Delivery O2 Flow Rate FiO2 07/05/21 09:12 82 135/66 07/05/21 08:30 Trach Collar 10.0 07/05/21 07:00 97.0 22 97 97.0 Physical Exam PHYSICAL EXAM GENERAL: Awake gentleman who is nonverbal, not in distress. VITAL SIGNS: stable HEENT: Both pupils are round and reacting. No conjunctival lesion. No oral lesion. NECK: Supple, no JVP. LUNGS: Clear. HEART: S1, S2 regular. No gallop or murmur. ABDOMEN: Soft, nontender. PEG tube is in place. EXTREMITIES: Contractures present. Minor skin breakdown in the sacrococcygeal area. NEUROLOGIC: The patient is unresponsive. Labs Lab Laboratory Tests Test 07/05/21 05:45 White Blood Count 16.3 x10^3/uL (4.0-11.0) Red Blood Count 3.72 x10^6/uL (4.30-5.70) Hemoglobin 11.3 g/dL (13.0-17.5) Hematocrit 33.9 % (39.0-53.0) Mean Corpuscular Volume 91 fL (79-100) Mean Corpuscular Hemoglobin 30 pg (25-35) Mean Corpuscular Hemoglobin Concent 33 g/dL (31-37) Red Cell Distribution Width 17.3 % (11.5-14.5) Platelet Count 368 x10^3/uL (140-400) Neutrophils (%) (Auto) 70 % (31-73) Lymphocytes (%) (Auto) 19 % (24-48) Monocytes (%) (Auto) 8 % (0-9) Eosinophils (%) (Auto) 2 % (0-3) Basophils (%) (Auto) 1 % (0-3) Neutrophils # (Auto) 11.4 x10^3/uL (1.8-7.7) Lymphocytes # (Auto) 3.1 x10^3/uL (1.0-4.8) Monocytes # (Auto) 1.3 x10^3/uL (0.0-1.1) Eosinophils # (Auto) 0.3 x10^3/uL (0.0-0.7) Basophils # (Auto) 0.1 x10^3/uL (0.0-0.2) Sodium Level 137 mmol/L (136-145) Potassium Level 4.2 mmol/L (3.5-5.1) Chloride Level 105 mmol/L (98-107) Carbon Dioxide Level 27 mmol/L (21-32) Anion Gap 5 (6-14) Blood Urea Nitrogen 8 mg/dL (8-26) Creatinine 0.6 mg/dL (0.7-1.3) Estimated GFR (Cockcroft-Gault) 143.8 BUN/Creatinine Ratio 13 (6-20) Glucose Level 94 mg/dL (70-99) Calcium Level 7.7 mg/dL (8.5-10.1) Total Bilirubin 0.3 mg/dL (0.2-1.0) Aspartate Amino Transf (AST/SGOT) 47 U/L (15-37) Alanine Aminotransferase (ALT/SGPT) 57 U/L (16-63) Alkaline Phosphatase 81 U/L (46-116) Total Protein 4.7 g/dL (6.4-8.2) Albumin 1.2 g/dL (3.4-5.0) Albumin/Globulin Ratio 0.3 (1.0-1.7) Micro Microbiology 07/02/21 Blood Culture - Preliminary, Resulted NO GROWTH AFTER 1 DAY Objective Assessment IMPRESSION 1. Fever. 2. Leukocytosis. 3. Pulmonary embolus,. 4. Pneumonia. 5. Persistent vegetative state, status post cardiac arrest. 6. History of MRSA. 7. Intractable seizures. 8. Tachycardia. Plan Plan of Care cont antibiotics cont supportive care consider hospice FOSTER GUERIN MD Jul 05, 2021 11:04
--- NOTE | 2021-07-05 11:31 | NUR ---
SW following. Discussed with RN, awaiting insurance auth for return to [facility]. SW will continue to follow.
--- NOTE | 2021-07-05 12:19 | PN ---
DATE: 07/05/2021 SUBJECTIVE: The patient is resting, slightly propped up in bed, in no apparent respiratory distress. He is encephalopathic, nonverbal. Nursing staff did not voice any concerns, stated that he had an uneventful night. PHYSICAL EXAMINATION: GENERAL: When I examined him, he was pale, but no jaundice, cyanosis or thyromegaly. No jugular venous distention. No lower limb edema. VITAL SIGNS: His heart rate was 82, blood pressure was 135/66, temperature 97, respiratory rate was 22 and oxygen saturation was 97% on 10 liters by trach shield. HEAD, EYES, EARS, NOSE AND THROAT: Normocephalic, atraumatic. NECK: Supple, with tracheostomy tube in place. HEART: Normal first heart sound. No gallop or murmur. CHEST: Showed central trachea, equal bilateral chest expansion, air entry, vesicular breath sounds. I cannot appreciate any crepitation or rhonchi anteriorly. ABDOMEN: Distended, soft with gastrostomy tube in place. No guarding or rigidity. No organomegaly. All hernial orifice intact. Bowel sounds normal. NEUROLOGIC: He is encephalopathic, nonverbal. He does open his eyes, but does not track or follow commands. He has fixed flexion contraction of all four limbs, has an indwelling Ely catheter. His intake was 540, output was 800. LABORATORY DATA: As of this morning, his serum sodium was 137, potassium 4.2, chloride 105, bicarbonate 27, anion gap of 5, BUN 8, creatinine 0.6. Estimated GFR was 143 mL per minute. His glucose 94, calcium was 7.7, magnesium 2.2. Total bilirubin, AST, ALT, alkaline phosphatase were normal. Total protein 4.7, albumin was 1.2. White cell count is down to 16,000, hemoglobin 11, hematocrit 33, MCV 91, and platelet count 368,000 with normal manual differential. ASSESSMENT: 1. Severe anoxic encephalopathy. 2. Acute hypoxic respiratory failure, requiring intubation, mechanical ventilation with subsequent tracheostomy tube placement. 3. Status post out of hospital cardiac arrest. 4. History of Pseudomonas pneumonia on admission to another hospital. 5. Recurrent episode of what seemed to be supraventricular tachycardia. 6. Pulmonary embolism. 7. Left lower lobe pneumonia. 8. Seizure disorder. 9. Hypokalemia. It has resolved. His potassium is 4.2. 10. Severe protein calorie malnutrition. PLAN: To continue with IV antibiotic. So far, his blood cultures are negative after 2 days. Continue with nutritional support. Continue with Lovenox for PE treatment. YANN DR: Franchesca TID: [id number]
[2021-07-05 15:00] VITALS: BP 102/72
[2021-07-05 19:00] VITALS: BP 129/69
[2021-07-05 23:00] VITALS: BP 127/75
[2021-07-06] MEDS: PIPERACILLIN/TAZOBACTAM 3.375 GM in IV NORMAL SALINE 50ML 50 ML IV SCH ×4 (00:40→17:46)
[2021-07-06 03:14] VITALS: BP 125/68
[2021-07-06 07:00] VITALS: BP 144/87
--- NOTE | 2021-07-06 07:19 | PDOC ---
Infectious Disease Note Subjective Subjective Patient is not responsive ROS ROS No nausea vomiting diarrhea Vital Sign Vital Signs Vital Signs Date Time Temp Pulse Resp B/P (MAP) Pulse Ox O2 Delivery O2 Flow Rate FiO2 07/06/21 03:56 98 Tracheal Collar 10.0 07/06/21 03:14 98.3 89 18 125/68 (87) 98.3 Physical Exam PHYSICAL EXAM GENERAL: Awake gentleman who is nonverbal, not in distress. VITAL SIGNS: stable HEENT: Both pupils are round and reacting. No conjunctival lesion. No oral lesion. NECK: Supple, no JVP. LUNGS: Clear. HEART: S1, S2 regular. No gallop or murmur. ABDOMEN: Soft, nontender. PEG tube is in place. EXTREMITIES: Contractures present. Minor skin breakdown in the sacrococcygeal area. NEUROLOGIC: The patient is unresponsive. Labs Micro Microbiology 07/02/21 Blood Culture - Preliminary, Resulted NO GROWTH AFTER 1 DAY Objective Assessment IMPRESSION 1. Fever. 2. Leukocytosis. 3. Pulmonary embolus,. 4. Pneumonia. 5. Persistent vegetative state, status post cardiac arrest. 6. History of MRSA. 7. Intractable seizures. 8. Tachycardia. Plan Plan of Care cont antibiotics cont supportive care consider hospice FOSTER GUERIN MD Jul 06, 2021 07:19
[2021-07-06 09:36] LABS: HEMATOCRIT 35.8 % (39.0-53.0); RED CELL DISTRIBUTION WIDTH 17.5 % (11.5-14.5)
[2021-07-06 09:54] LABS: CREATININE 0.6 mg/dL (0.7-1.3); GFR 143.8
[2021-07-06 11:00] VITALS: BP 138/91
[2021-07-06] MEDS: LACOSAMIDE 200 MG TABLET PO SCH ×2 (11:02→23:35)
[2021-07-06] MEDS: METOPROLOL TART IMMED RELEASE 25 MG TABLET. PO SCH ×2 (11:02→23:35)
[2021-07-06] MEDS: ASPIRIN 325 MG TABLET PO SCH (11:02)
[2021-07-06] MEDS: CHLORHEXIDINE 0.12% 15 ML MOUTHWASH. MM SCH ×2 (11:02→23:35)
[2021-07-06] MEDS: CETIRIZINE HCL 10 MG TABLET. PO SCH (11:02)
[2021-07-06] MEDS: METHOCARBAMOL 500 MG TABLET PO SCH ×3 (11:02→23:35)
[2021-07-06] MEDS: LANSOPRAZOLE 30 MG TAB.RAP.DR PEG SCH ×2 (11:02→23:35)
--- NOTE | 2021-07-06 12:15 | NUR ---
SS following up with discharge planning. SS reviewed pt chart and discussed with pt RN. Pt is currently requiring oxygen at ten liters trach collar. COVID19 negative. Pt on IV Zosyn and IV Zyvox. Pt from [facility], ; fax [phone]. Clinical updates phoned and faxed to [facility]. Per Preet at [facility], insurance is still pending at this time. SS will continue to follow for discharge planning.
[2021-07-06] MEDS: ANTI-COAG MONITOR BY PHARMACY. MC PRN (12:24)
[2021-07-06 15:00] VITALS: BP 124/65
[2021-07-06] MEDS ORDERED: DAPTOmycin (GENERIC) IVPB 500 MG in IV NORMAL SALINE 50ML 50 ML IV SCH (16:00)
--- NOTE | 2021-07-06 17:30 | NUR ---
Wound/Ostomy Care Wound Type/Assessment: Patient seen per wound care consult. See wound assessment. Patient has a stage III with DTI to coccyx. Wound cleansed and assessed. Patient has been seen in previous admissions. Patient has an anoxic brain injury, non-verbal. Treatment Recommendations/Plan: Recommendations for xeroform gauze and foam dressing to coccyx. patient should be turned every 2 hours using wedge. Dressing applied. Education provided: N/A Offloading surface/device: Patient is currently on a P-500 bed, bilateral heel medix in place, as well as a wedge for offlaoding. Patient repositioned to left side using wedge. Recommended Referrals/Tests: N/A Discharge Recommendations for dressings: Dressing change instructions left in room. No other wounds noted. Bed lowered and tube feeding resumed with HOB elevated. Wound care will follow up on 07/13/21.
[2021-07-06 19:00] VITALS: BP 124/70
[2021-07-06 23:00] VITALS: BP 125/73
[2021-07-07] MEDS: PIPERACILLIN/TAZOBACTAM 3.375 GM in IV NORMAL SALINE 50ML 50 ML IV SCH ×5 (00:53→23:27)
[2021-07-07 03:00] VITALS: BP 96/69
[2021-07-07 07:00] VITALS: BP 115/72
--- NOTE | 2021-07-07 09:56 | PN ---
DATE: 07/07/2021 SUBJECTIVE: The patient is resting slightly propped up in bed, in no apparent distress. He is encephalopathic. He does open his eyes occasionally, but does not track or follow commands and nursing staff did not voice any concerns, stated that he had an uneventful night. PHYSICAL EXAMINATION: GENERAL: When I examined him, he looked pale. No jaundice, cyanosis or thyromegaly. No jugular venous distention. No limb edema. VITAL SIGNS: His heart rate was 103, blood pressure was 115/72, temperature was 100.8, respiratory rate was 16 and oxygen saturation was 100% on 10 liters of oxygen by trach shield. HEAD, EYES, EARS, NOSE AND THROAT: Normocephalic, atraumatic. NECK: Supple, with tracheostomy tube in place. HEART: Showed normal first and second heart sounds. No gallop, rub or murmur. CHEST: Central trachea, equal bilateral expansion air entry, could not really appreciate any crepitation or rhonchi anteriorly. ABDOMEN: Scaphoid, soft with a gastrostomy tube in place. NEUROLOGIC: He continued to be encephalopathic, nonverbal. His intake over the last 24 hours was 800, output was 4500. LABORATORY DATA: Most recent lab work showed a serum sodium 142, potassium 4, chloride 108, bicarbonate 28, anion gap of 6, BUN 8, creatinine 0.6. Estimated GFR was 143 mL per minute, glucose 111, calcium was 8.8. Liver enzymes: Total protein and albumin are all very low. Her TSH was 4.3. ASSESSMENT: 1. Severe anoxic encephalopathy, status post out of hospital cardiac arrest. 2. Acute hypoxic respiratory failure, requiring intubation and mechanical ventilation, subsequent tracheostomy tube placement. 3. History of Pseudomonas aeruginosa pneumonia. 4. Recurrent episode of what seemed to be supraventricular tachycardia. 5. Pulmonary embolism. 6. Left lower lobe pneumonia. 7. Seizure disorder. 8. Hypokalemia. 9. Severe protein calorie malnutrition. PLAN: My plan is to continue with IV antibiotic. Continue nutritional support. Continue with Keppra for seizure disorder. Continue with Lovenox for PE treatment. Await the authorization by the insurance to transfer him back to [facility]. ZAID DR: Franchesca TID: [id number]
--- NOTE | 2021-07-07 10:05 | PDOC ---
Infectious Disease Note Subjective Subjective Patient is not responsive ROS ROS no n/v/d/sob Vital Sign Vital Signs Vital Signs Date Time Temp Pulse Resp B/P (MAP) Pulse Ox O2 Delivery O2 Flow Rate FiO2 07/07/21 08:27 100 Tracheal Collar 10.0 07/07/21 07:00 100.8 103 16 115/72 (86) 100.8 Physical Exam PHYSICAL EXAM GENERAL: Awake gentleman who is nonverbal, not in distress. VITAL SIGNS: stable HEENT: Both pupils are round and reacting. No conjunctival lesion. No oral lesion. NECK: Supple, no JVP. LUNGS: Clear. HEART: S1, S2 regular. No gallop or murmur. ABDOMEN: Soft, nontender. PEG tube is in place. EXTREMITIES: Contractures present. Minor skin breakdown in the sacrococcygeal area. NEUROLOGIC: The patient is unresponsive. Labs Micro Microbiology 07/02/21 Blood Culture - Preliminary, Resulted NO GROWTH AFTER 1 DAY Objective Assessment IMPRESSION 1. Fever. 2. Leukocytosis. 3. Pulmonary embolus,. 4. Pneumonia. 5. Persistent vegetative state, status post cardiac arrest. 6. History of MRSA. 7. Intractable seizures. 8. Tachycardia. Plan Plan of Care cont antibiotics cont supportive care consider hospice FOSTER GUERIN MD Jul 07, 2021 10:05
[2021-07-07] MEDS: CETIRIZINE HCL 10 MG TABLET. PO SCH (10:17)
[2021-07-07] MEDS: SCOPOLAMINE 1.5MG PATCH. TD SCH (10:18)
[2021-07-07] MEDS: LACOSAMIDE 200 MG TABLET PO SCH ×2 (10:18→23:26)
[2021-07-07] MEDS: ASPIRIN 325 MG TABLET PO SCH (10:18)
[2021-07-07] MEDS: LANSOPRAZOLE 30 MG TAB.RAP.DR PEG SCH ×2 (10:18→23:26)
[2021-07-07] MEDS: METOPROLOL TART IMMED RELEASE 25 MG TABLET. PO SCH ×2 (10:19→21:00)
[2021-07-07] MEDS: CHLORHEXIDINE 0.12% 15 ML MOUTHWASH. MM SCH ×2 (10:19→23:26)
[2021-07-07] MEDS: METHOCARBAMOL 500 MG TABLET PO SCH ×3 (10:20→23:26)
[2021-07-07 11:00] VITALS: BP 111/67
[2021-07-07] MEDS: ANTI-COAG MONITOR BY PHARMACY. MC PRN (11:26)
[2021-07-07] MEDS: ACETAMINOPHEN 500 MG TABLET PO PRN (14:57)
[2021-07-07 15:00] VITALS: BP 126/68
--- NOTE | 2021-07-07 15:02 | NUR ---
SS following up with discharge planning. SS reviewed pt chart and discussed with pt RN. Pt is from [facility], ; fax [phone]. COVID19 negative. Pt on 10 liters trach collar. Pt on IV Zosyn and IV Zyvox. Currently awaiting insurance approval at this time for return to [facility]. Discharge orders phoned and faxed to [facility]. SS will continue to follow for discharge planning. Packet and ambulance form on the chart. Addendum: 07/07/21 at 1529 by MARTINE POLK SS Insurance authorization received for [facility]. Per [facility], bed available tomorrow.
[2021-07-07 19:00] VITALS: BP 98/64
[2021-07-07 23:19] VITALS: BP 92/57
[2021-07-08 03:00] VITALS: BP 91/59
[2021-07-08] MEDS: ACETAMINOPHEN 500 MG TABLET PO PRN (04:22)
[2021-07-08] MEDS: PIPERACILLIN/TAZOBACTAM 3.375 GM in IV NORMAL SALINE 50ML 50 ML IV SCH ×3 (05:59→18:00)
[2021-07-08 07:00] VITALS: BP 103/61
[2021-07-08 08:37] LABS: HEMATOCRIT 33.7 % (39.0-53.0); HEMOGLOBIN 11.7 g/dL (13.0-17.5); RED BLOOD COUNT 3.65 x10^6/uL (4.30-5.70); RED CELL DISTRIBUTION WIDTH 17.4 % (11.5-14.5); WHITE BLOOD COUNT 16.8 x10^3/uL (4.0-11.0)
[2021-07-08 09:08] LABS: ALBUMIN 1.3 g/dL (3.4-5.0); ALBUMIN/GLOBULIN RATIO 0.4 (1.0-1.7); CALCIUM 7.7 mg/dL (8.5-10.1); CREATININE 0.6 mg/dL (0.7-1.3); GFR 143.8; POTASSIUM 4.1 mmol/L (3.5-5.1); TOTAL BILIRUBIN 0.3 mg/dL (0.2-1.0); TOTAL PROTEIN 4.9 g/dL (6.4-8.2)
[2021-07-08] MEDS: LACOSAMIDE 200 MG TABLET PO SCH (09:14)
[2021-07-08] MEDS: METHOCARBAMOL 500 MG TABLET PO SCH ×2 (09:14→14:01)
[2021-07-08] MEDS: CHLORHEXIDINE 0.12% 15 ML MOUTHWASH. MM SCH (09:14)
[2021-07-08] MEDS: ASPIRIN 325 MG TABLET PO SCH (09:16)
[2021-07-08] MEDS: METOPROLOL TART IMMED RELEASE 25 MG TABLET. PO SCH (09:16)
[2021-07-08] MEDS: CETIRIZINE HCL 10 MG TABLET. PO SCH (09:16)
[2021-07-08] MEDS: LANSOPRAZOLE 30 MG TAB.RAP.DR PEG SCH (09:17)
[2021-07-08 11:00] VITALS: BP 112/55
[2021-07-08 12:25] VITALS: BP 113/62
--- NOTE | 2021-07-08 13:09 | PDOC ---
Infectious Disease Note Subjective Subjective Patient is not responsive Remains febrile at 101*F ROS ROS no n/v/d/ Vital Sign Vital Signs Vital Signs Date Time Temp Pulse Resp B/P (MAP) Pulse Ox O2 Delivery O2 Flow Rate FiO2 07/08/21 12:25 99.6 79 24 113/62 (79) 97 Tracheal Collar 10.0 99.6 Physical Exam PHYSICAL EXAM GENERAL: Awake gentleman who is nonverbal, not in distress. VITAL SIGNS: stable HEENT: Both pupils are round and reacting. No conjunctival lesion. No oral lesion. NECK: Supple, no JVP. LUNGS: Clear. HEART: S1, S2 regular. No gallop or murmur. ABDOMEN: Soft, nontender. PEG tube is in place. EXTREMITIES: Contractures present. Minor skin breakdown in the sacrococcygeal area. NEUROLOGIC: The patient is unresponsive. Labs Lab Laboratory Tests Test 07/08/21 08:20 White Blood Count 16.8 x10^3/uL (4.0-11.0) Red Blood Count 3.65 x10^6/uL (4.30-5.70) Hemoglobin 11.7 g/dL (13.0-17.5) Hematocrit 33.7 % (39.0-53.0) Mean Corpuscular Volume 92 fL (79-100) Mean Corpuscular Hemoglobin 32 pg (25-35) Mean Corpuscular Hemoglobin Concent 35 g/dL (31-37) Red Cell Distribution Width 17.4 % (11.5-14.5) Platelet Count 432 x10^3/uL (140-400) Sodium Level 139 mmol/L (136-145) Potassium Level 4.1 mmol/L (3.5-5.1) Chloride Level 106 mmol/L (98-107) Carbon Dioxide Level 26 mmol/L (21-32) Anion Gap 7 (6-14) Blood Urea Nitrogen 10 mg/dL (8-26) Creatinine 0.6 mg/dL (0.7-1.3) Estimated GFR (Cockcroft-Gault) 143.8 BUN/Creatinine Ratio 17 (6-20) Glucose Level 107 mg/dL (70-99) Calcium Level 7.7 mg/dL (8.5-10.1) Total Bilirubin 0.3 mg/dL (0.2-1.0) Aspartate Amino Transf (AST/SGOT) 83 U/L (15-37) Alanine Aminotransferase (ALT/SGPT) 115 U/L (16-63) Alkaline Phosphatase 107 U/L (46-116) Total Protein 4.9 g/dL (6.4-8.2) Albumin 1.3 g/dL (3.4-5.0) Albumin/Globulin Ratio 0.4 (1.0-1.7) Micro Microbiology 07/02/21 Blood Culture - Preliminary, Resulted NO GROWTH AFTER 1 DAY Objective Assessment 1. Fever. 2. Leukocytosis. 3. Pulmonary embolus,. 4. Pneumonia. 5. Persistent vegetative state, status post cardiac arrest. 6. History of MRSA. 7. Intractable seizures. 8. Tachycardia. Plan Plan of Care cont antibiotics cont supportive care Prognosis very poor consider hospice add micafungin FOSTER GUERIN MD Jul 08, 2021 13:09
[2021-07-08 15:00] VITALS: BP 126/70
[2021-07-08] MEDS ORDERED: MICAFUNGIN 100 MG in IV DEXTROSE 5% 100ML 100 ML IV SCH (17:00)
[2021-07-08 19:40] VITALS: BP 120/73
--- NOTE | 2021-07-08 22:58 | PN ---
DATE: 07/08/2021 SUBJECTIVE: The patient is resting, slightly propped up in bed, in no apparent distress. He continued to be encephalopathic. He does open his eyes, but does not track or follow commands. Unfortunately, he is spiking his temperature again, and this morning, his temperature is 101. White cell count is also up to 16,800. His blood cultures are so far negative after 5 days. I have had a lengthy discussion with his sister, Melba Howard, and she seemed to be receptive to the idea of hospice, but she has to contact his family, in particular his daughter that lives in [place]. She is planning to make a decision in the next day or two, as I explained that he has not really made any neurological improvement and he continued to be extremely encephalopathic, must have sustained severe anoxic brain damage. PHYSICAL EXAMINATION: GENERAL: When I examined him this morning, he was pale, but not jaundiced or cyanosed. No lymphadenopathy. No thyromegaly. No jugular venous distention. No lower limb edema. VITAL SIGNS: His heart rate was 107, blood pressure was 91/59, temperature was 101, respiratory rate was 16 and oxygen saturation was 99% on 10 liters by tracheal shield. HEAD, EYES, EARS, NOSE AND THROAT: Normocephalic, atraumatic. NECK: Supple. HEART: Normal first and second sounds. No gallop or murmur. CHEST: Shows central trachea, equal bilateral chest expansion, air entry, vesicular breath sounds with crepitation mostly on the left side posteriorly. I could not appreciate any rhonchi. ABDOMEN: Scaphoid, soft with gastrostomy tube in place. No guarding or rigidity. No organomegaly. All hernial orifice intact. Bowel sounds normal. NEUROLOGIC: He continued to be encephalopathic with marked muscle wasting and fixed flexion contraction of almost all 4 limbs. He has an indwelling Ely catheter. His intake was 300, output was 2300. LABORATORY DATA: As of this morning, his white cell count is up to 16,800, hemoglobin 11.7, hematocrit 33, MCV 92 and platelet count of 432,000. His chemistry is still pending at the time of this dictation. PLAN: My plan is to panculture him again and send urine, blood and sputum for culture. Meanwhile, we will continue with his Lovenox for his pulmonary emboli. Continue with Zyvox and Zosyn and await the evaluation by the Infectious Disease specialist. AYLIN/HERNAN/LENIN DR: Franchesca TID: [id number]
== END 2021-07-08 23:14 | DRG 871 ==
LOC: ER 09:10 → 2 SOUTH 11:20 → ED HOLD 12:59 → 5 NORTH 12:59
PROVIDERS: ADMIT Internal Medicine; ATTEND Internal Medicine
DX: A41.9 Sepsis, unspecified organism (principal); I26.99 Other pulmonary embolism without acute cor pulmonale; E43 Unspecified severe protein-calorie malnutrition; J96.01 Acute respiratory failure with hypoxia; J15.6 Pneumonia due to other Gram-negative bacteria; J15.9 Unspecified bacterial pneumonia; G40.919 Epilepsy, unspecified, intractable, without status epilepticus; G93.1 Anoxic brain damage, not elsewhere classified; I47.1 Supraventricular tachycardia; M62.82 Rhabdomyolysis; N17.9 Acute kidney failure, unspecified; N39.0 Urinary tract infection, site not specified; R40.3 Persistent vegetative state; E87.6 Hypokalemia; F15.10 Other stimulant abuse, uncomplicated; F17.200 Nicotine dependence, unspecified, uncomplicated; R65.20 Severe sepsis without septic shock; Z86.14 Personal history of Methicillin resistant Staphylococcus aureus infection; Z87.01 Personal history of pneumonia (recurrent); Z87.11 Personal history of peptic ulcer disease; Z90.81 Acquired absence of spleen; Z93.0 Tracheostomy status; Z93.1 Gastrostomy status; K21.9 Gastro-esophageal reflux disease without esophagitis; M19.90 Unspecified osteoarthritis, unspecified site; Z66 Do not resuscitate
CPT/HCPCS: 31720; 36415; 71275; 80048; 80053; 81001; 82553; 83605; 83735; 83880; 84443; 84484; 85007; 85025; 85027; 87040; 87086; 87426; 93005; 94760; 96361; 96365; 96372; J0153; J1650; J2020; J2248; J2543; J3370; J7030; J7040; J7050; J7060; Q9967; U0003; U0005; 99291-25; G0378